=== PATIENT | male | born 1975 | race African-American/Black ===

== ENCOUNTER 2017-05-16 10:14 | Emergency (ER) | payer OTHER ==
[2017-05-16 11:34] LABS: #Monocytes 0.3 thou/uL (0.11-0.59); #Neutrophils 1.8 thou/uL (1.40-6.50); %Basophils 0.6 % (0.0-1.0); %Lymphocytes 31.7 % (21.0-51.0); %Monocytes 9.5 % (0.0-10.0); %Neutrophils 57.2 % (42.0-75.0); Hemoglobin 12.6 g/dL (14.0-18.0); Mean Corpuscular HGB CONC 33.5 g/dL (32.0-36.0); Mean Corpuscular Hemoglobin 29.6 pg (27.0-31.0); Mean Corpuscular Volume 88.5 fl (80.0-94.0); Platelet Count 159 thou/uL (130-400); RBC Distribution Width 11.6 % (11.5-14.5); Red Blood Cell (RBC) Count 4.26 mill/uL (4.70-6.10); White Blood Cell (WBC) Count 3.1 thou/uL (4.8-10.8)
[2017-05-16 11:40] LABS: INR-International Normal Ratio 0.9; Prothrombin Time 12.6 SEC (12.0-14.7)
[2017-05-16 11:51] LABS: ALT (SGPT) 25 U/L (8-55); AST (SGOT) 17 U/L (5-34); Albumin 4.1 g/dL (3.5-5.0); Alkaline Phosphatase 74 U/L (40-150); Anion Gap 9 mmol/L (10-20); BUN (Urea Nitrogen) 7 mg/dL (8.9-20.6); Bilirubin, Total 0.5 mg/dL (0.2-1.2); CK (CPK) 262 U/L (30-200); Calc. Creatinine Clearance 0 mL/min (70-130); Calcium 9.2 mg/dL (7.8-10.44); Carbon Dioxide 29 mmol/L (22-29); Chloride 106 mmol/L (98-107); Estimated GFR-MDRD Greater than 90; Globulin 2.6 g/dL (2.4-3.5); Glucose 94 mg/dL (70-105); Lipase 17 U/L (8-78); Potassium 4.4 mmol/L (3.5-5.1); Protein, Total 6.7 g/dL (6.0-8.3); Sodium 140 mmol/L (136-145)
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
[2017-05-16 13:22] LABS: Bilirubin Negative (Negative); Blood, Urine Negative (Negative); Clarity CLEAR (Clear); Glucose, Urine (Dipstick) 100 mg/dL (Negative); Leukocyte Negative (Negative); Nitrite Negative (Negative); Protein, Urine (Dipstick) Negative (Neg-Trace); Specific Gravity, Urine 1.011 (1.002-1.036); Urobilinogen 0.2 mg/dL (0.2-1.0); pH, Urine 7.5 (5.0-9.0)
[2017-05-16] MEDS ORDERED: Ketorolac Tromethamine 30 MG/ML VIAL ONE (14:42)
== END 2017-05-16 14:55 | disposition home or self-care (01) ==
LOC: ERS 10:14
DX: S80.12XA Contusion of left lower leg, initial encounter (principal); M54.5 Low back pain; M54.6 Pain in thoracic spine; R10.9 Unspecified abdominal pain; I10 Essential (primary) hypertension; E11.9 Type 2 diabetes mellitus without complications; E78.5 Hyperlipidemia, unspecified; V43.62XA Car passenger injured in collision with other type car in traffic accident, initial encounter
CPT/HCPCS: 36415; 72128; 74177; 80053; 81003; 82550; 83605; 83690; 83735; 85025; 85610; 96361; 96374; 96375; J1885; J2270

== ENCOUNTER 2017-08-25 16:50 | Inpatient (IN) | payer OTHER ==
[2017-08-25] MEDS ORDERED: Ondansetron HCl/PF 4 MG/2 ML Vial SLOW IVP PRN (17:18)
[2017-08-25] MEDS ORDERED: Acetaminophen 500 MG TAB PO PRN (17:18)
[2017-08-25] MEDS ORDERED: Benzonatate 100 MG CAP PO PRN (17:21)
[2017-08-25] MEDS ORDERED: Bisacodyl 5 MG TAB PO PRN (17:21)
[2017-08-25 18:16] LABS: #Lymphocytes 1.3 thou/uL (1.20-3.40); #Monocytes 0.4 thou/uL (0.11-0.59); #Neutrophils 3.4 thou/uL (1.40-6.50); %Basophils 0.5 % (0.0-1.0); %Eosinophils 0.5 % (0.0-10.0); %Lymphocytes 25.2 % (21.0-51.0); %Monocytes 8.3 % (0.0-10.0); %Neutrophils 65.6 % (42.0-75.0); Hemoglobin 13.2 g/dL (14.0-18.0); Mean Corpuscular HGB CONC 34.3 g/dL (32.0-36.0); Mean Corpuscular Hemoglobin 29.6 pg (27.0-31.0); Mean Corpuscular Volume 86.2 fl (80.0-94.0); Mean Platelet Volume 8.1 fL (7.4-10.4); Platelet Count 196 thou/uL (130-400); RBC Distribution Width 11.7 % (11.5-14.5); Red Blood Cell (RBC) Count 4.47 mill/uL (4.70-6.10); White Blood Cell (WBC) Count 5.1 thou/uL (4.8-10.8)
[2017-08-25 18:23] LABS: Hemoglobin A1c 10.6 % (4.0-6.0)
--- NOTE | 2017-08-25 18:24 | PDOC.EVN ---
Attending Addendum - Attending Addendum Date/Time: 08/25/171818 I personally evaluated the patient and discussed the management with Dr. Dixon/ Arik. I agree with the History, Examination, Assessment and Plan documented in the H& P with any addition or exceptions noted below. Patient with history of IDDM with last A1c 10.9 in our clinic records presenting with several months of R 3rd toe pain and swelling. He reports no previous injury that he knows of, but reports he has had purulent drainage and increasing pain during that time. Reports that currently the pain extends into his R leg. Denies f/c/n/v/d and malaise. Was evaluated in our clinic today and was sent for treatment with IV antibiotics and concern for possible osteomyelitis. We will admit patient, start treatment with IV Vanc and Zosyn that will require monitoring. Consult wound care. Obtain ESR and XR of foot. If lab or imaging evidence of osteomyelitis, will need MRI and likely surgical consult for possible debridement/amputation of the digit. Recheck A1c and will need to obtain tight glycemic control due to infection. Anticipate 3+days of hospitalization.
[2017-08-25 18:35] LABS: ALT (SGPT) 20 U/L (8-55); AST (SGOT) 15 U/L (5-34); Albumin 4.4 g/dL (3.5-5.0); Alkaline Phosphatase 102 U/L (40-150); Anion Gap 15 mmol/L (10-20); BUN (Urea Nitrogen) 13 mg/dL (8.9-20.6); Bilirubin, Total 0.6 mg/dL (0.2-1.2); CRP (Inflammatory) Less than 0.50 mg/dL (= or < 0.5); Calc. Creatinine Clearance 0 mL/min (70-130); Calcium 10.4 mg/dL (7.8-10.44); Carbon Dioxide 23 mmol/L (22-29); Chloride 99 mmol/L (98-107); Estimated GFR-MDRD 85; Globulin 3.3 g/dL (2.4-3.5); Glucose 342 mg/dL (70-105); Potassium 4.3 mmol/L (3.5-5.1); Protein, Total 7.7 g/dL (6.0-8.3); Sodium 133 mmol/L (136-145)
[2017-08-25 18:54] LABS: Free T4 (Free Thyroxine) 0.88 ng/dL (0.70-1.48); Thyroid Stimulating Hormone 0.6317 uIU/mL (0.35-4.94)
--- NOTE | 2017-08-25 19:40 | PDOC.FPRHP ---
- History of Present Illness Chief Complaint: Toe pain/infection History of Present Illness: 42 yo M w/ PMH of DMII, HTN and BPH presents as direct admit form [facility] for evaluation of rt 3rd toe infection vs osteomyelitis. Pt reports swelling and pain for the past 2 months which has progressively worsened over the last week. He was able to ambulate on the affected toe with some discomfort over the last 2 months but reports decreased ability to apply pressure to affected tow over last week. He does report the toe was draining purulent drainage at some point this week. He denies fever, chills, nvdc, cp, sob, LE skin or color changes. He states he is compliant with his insulin. ED Course: NA - Allergies/Adverse Reactions Allergies Allergy/AdvReac Type Severity Reaction Status Date / Time No Known Drug Allergies Allergy Verified 08/25/17 20:16 - Home Medications Medication Instructions Recorded Confirmed Type Insulin NPH/Reg Insulin Hm 20 unit SC QPM 07/21/14 06/11/16 History [HumuLIN 70/30 Vial] Insulin NPH/Reg Insulin Hm 30 unit SC QAM 07/21/14 06/11/16 History [HumuLIN 70/30 Vial] Simvastatin 40 mg PO HS 07/21/14 06/11/16 History Lisinopril [Zestril] 2.5 mg PO DAILY 01/12/15 06/11/16 History metFORMIN HCl 1,000 mg PO BID- 06/11/16 06/11/16 History Aspirin [Adult Low Dose Aspirin EC] 81 mg PO DAILY #30 tablet. 06/12/16 Rx Comments: UTD when compared to clinic chart - History PMHx:DMII, HTN, BPH, Alcohol abuse, HLD, Drug Use PSHx: Rt pec derm procedure FHx: NA Social: Current 1 pack/week smoker, 24 beers/day for over 10 years, Marijuana use occasionally - Review of Systems General: denies: fever/chills, weight/appetite/sleep changes, night sweats, fatigue Eyes: denies: eye pain, vision changes ENT: denies: nasal congestion, rhinorrhea Respiratory: denies: congestion, shortness of breath Cardiovascular: denies: chest pain, palpitation, edema Gastrointestinal: denies: nausea, vomiting, diarrhea, constipation, abdominal pain Genitourinary: denies: polyuria Skin: denies: rashes, jaundice Musculoskeletal: reports: pain, tenderness, swelling, other (pain, tnederness and swelling of rt 3rd toe) Neurological: denies: numbness, weakness - Vital signs BP: 151/99 HR: 87 RR: 18 Tmax: 98.7 Pox: 96% on RA Wt: - Physical Exam Constitutional: NAD, awake, alert and oriented HEENT: normocephalic and atraumatic, conjunctiva clear, no scleral icterus, grossly normal vision, grossly normal hearing, MMM, oropharynx clear, other ( exopthalmos, amblyopia) Neck: supple, trachea midline, no JVD, no thyromegaly Chest: no-tender to palpation Heart: RRR, normal S1/S2, no murmurs/rubs/gallops, pulses present, no edema Lungs: CTAB, no respiratory distress, good air movement, no rales/rhonchi, no wheezing, no retractions Abdomen: soft, non-tender, bowel sounds present, no masses/distention, no hernias Musculoskeletal: normal structure, ROM grossly normal, other (edema w/ fluctuance of rt 3rd toe and associated tenderness to palpation) Neurological: no focal deficit, CN II-XII intact Skin: no rash/lesions, capillary refill <2 seconds, no jaundice Heme/Lymphatic: no unusual bruising or bleeding, no petechia FMR H&P: Results - Labs Result Diagrams: 08/25/17 18:06 08/25/17 18:06 Lab results: WBC 5.1 thou/uL (4.8-10.8) 08/25/17 18:06 Hgb 13.2 g/dL (14.0-18.0) L 08/25/17 18:06 Hct 38.6 % (42.0-52.0) L 08/25/17 18:06 MCV 86.2 fl (80.0-94.0) 08/25/17 18: Plt Count 196 thou/uL (130-400) 08/25/17 18: Neutrophils % 65.6 % (42.0-75.0) 08/25/17 18: ESR Westergren 23 mm/hr (Less than 15) 08/25/17 18: Sodium 133 mmol/L (136-145) L 08/25/17 18:06 Potassium 4.3 mmol/L (3.5-5.1) 08/25/17 18:06 Chloride 99 mmol/L (98-107) 08/25/17 18:06 Carbon Dioxide 23 mmol/L (22-29) 08/25/17 18:06 BUN 13 mg/dL (8.9-20.6) 08/25/17 18:06 Creatinine 1.15 mg/dL (0.6-1.3) 08/25/17 18:06 Glucose 342 mg/dL (70-105) H 08/25/17 18:06 Calcium 10.4 mg/dL (7.8-10.44) 08/25/17 18:06 Total Bilirubin 0.6 mg/dL (0.2-1.2) 08/25/17 18:06 AST 15 U/L (5-34) 08/25/17 18:06 ALT 20 U/L (8-55) 08/25/17 18:06 Alkaline Phosphatase 102 U/L (40-150) 08/25/17 18:06 C-Reactive Protein Less than 0.50 mg/dL (= or < 0.5) 08/25/17 18:06 Serum Total Protein 7.7 g/dL (6.0-8.3) 08/25/17 18:06 Albumin 4.4 g/dL (3.5-5.0) 08/25/17 18:06 FMR H&P: A/P - Problem List (1) Diabetic foot infection Current Visit: Yes Status: Acute Code(s): E11.628 - TYPE 2 DIABETES MELLITUS WITH OTHER SKIN COMPLICATIONS; L08.9 - LOCAL INFECTION OF THE SKIN AND SUBCUTANEOUS TISSUE, UNSP (2) Diabetes mellitus Current Visit: Yes Status: Acute Code(s): E11.9 - TYPE 2 DIABETES MELLITUS WITHOUT COMPLICATIONS (3) Hyperlipidemia Current Visit: Yes Status: Acute Code(s): E78.5 - HYPERLIPIDEMIA, UNSPECIFIED (4) Essential hypertension Current Visit: No Status: Acute Code(s): I10 - ESSENTIAL (PRIMARY) HYPERTENSION (5) Alcohol abuse Current Visit: Yes Status: Acute Code(s): F10.10 - ALCOHOL ABUSE, UNCOMPLICATED - Plan 1) Diabetic foot infection vs osteomyelitis: 3v XR of foot, broad spectrum abx w / vanc + zosyn. ESR + CRP. Consider surgery consult in AM pending xray and lab findings. NPO @ midnight. 2) DMII: Continue home insulin + moderate SSI. Accuchecks ACHS. A1c >10. Consider further adjustment after NPO no longer needed 3) HLD: Home medications 4) HTN: BP elevated today, will increase lisinopril to 10mg/day 5) Alcohol abuse: subjective, ASE protocol, last drink yesterday per pt 6) h/o drug abuse; UDS 7) Exopthalmos: check TSH 8) PPX: SCDs, Pepcid for DVT and GI ppx respectively 9) Code status: pt wishes to be full code. Spoke with pt at bedside and 2 physicians present. Disposition/LOS: stable, >/= 2 days FMR H&P: Upper Level - Pertinent history 42yo AAM with pmhx IDDM2, HLD, etoh abuse and drug abuse presents as direct admit from clinic today for a right toe infection and concern for osteomyelitis. Pt endorses a wound on his right toe over the last few months that has worsened over the last week. Has now become painful and difficult to ambulate due to pain. Has not had any prior ulcers, infections or amputations. Endorses medication compliance, although has a last a1c of 10.9%. Rates his pain 10/10. Specifically denies fever, chills, nausea & vomiting, systemic symptoms or spread of infection beyond toe. Pt also endorses 24+ beers per day with his last drink being 1 day [employer]. Occasional MJ use and occasional tobacco use. - Pertinent findings PE sig for: Gen- well appearing male in NAD HEENT- exopthalmos bilaterally, ambylopia CV- rrrr, no mrg lungs- ctab abd- soft, nt,nd LE- no edema. Rt 3rd toe edema, fluctuance and ttp. no active discharge, unable to express purulent material Labs- pending foot xray- pending - Plan Date/Time: 08/25/171938 42yo aam w/ pmhx IDDM, HLD p/w- 1) Diabetic foot infection- r/o osteomyelitis with CBC, ESR & foot xray. unable to culture wound at this time (not open). Start empiric abx w/ IV Vanc + Zosyn for presumed polymicrobial infection. Consult wound care for mgmt. NPO and mn and consider surgical consult for debridement if required. 2) IDDM2- recommend strict glycemic control in setting of acute infection. continue home insulin + SSI. increase lisinopril due to evidence of microalbuminuria in clinic recently by review of records and improved BP control. 3) HTN- inc lisinopril. may need 2nd agent due to MOA of lisinopril not likely effective as anti-HTNive in AAM. monitor bp in hospital for further mgmt. 4) HLD- consider switch to high-intensity statin based on ASCVD = 14% 5) ETOH abuse- ASE protocol, monitor for s/sx withdrawal. has not had withdrawal previously. 6) drug abuse- check UDS 7) tobacco abuse- skilled nursing facility counselor re: cessation. offer TD nicotine. I, [Aby Elise], have evaluated this patient and agree with findings/plan as outlined by program management intern resident. Pertinent changes/additions are listed here.
[2017-08-25] MEDS: Piperacillin/Tazobactam 3.375 GM in Sodium Chloride 0.9% 100 ML IVPB SCH (19:42)
[2017-08-25 20:02] VITALS: BMI 34.5
[2017-08-25] MEDS ORDERED: Dextrose 50% Abboject 50 ML SYRINGE SLOW IVP PRN (20:14)
[2017-08-25] MEDS ORDERED: Dextrose 5% in Water 1,000 ML IV PRN (20:14)
--- NOTE | 2017-08-25 20:51 | RAD ---
THREE VIEWS OF THE RIGHT FOOT: 08/25/17 INDICATION: Concern for osteomyelitis. FINDINGS: There is prominent soft tissue swelling of the right small digit. There is soft tissue swelling of th e right third digit. No destructive osteolysis seen to suggest radiographic evidence of osteomyelitis . There is arthrodesis of the talocalcaneal and calcaneocuboid articulations. There is moderate degen erative change in the midfoot. IMPRESSION: 1. No radiographic evidence of osteomyelitis. Soft tissue swelling in the right third digit and right small digit. 2. Postoperative right foot. 3. Degenerative changes of the right foot. POS: [facility]
[2017-08-25] MEDS: Insulin NPH/Reg Insulin Hm 300 UNITS/3 ML VIAL SC SCH (20:52)
[2017-08-25] MEDS: Vancomycin HCl 1.25 GM in Sodium Chloride 0.9% 250 ML 250 ML IVPB SCH (20:53)
[2017-08-25] MEDS: Simvastatin 40 MG TAB PO SCH (20:53)
[2017-08-26] MEDS: Piperacillin/Tazobactam 3.375 GM in Sodium Chloride 0.9% 100 ML IVPB SCH ×4 (00:39→17:23)
--- NOTE | 2017-08-26 06:39 | PDOC.FM ---
Addendum entered and electronically signed by Joe Turner MD 08/26/17 08: 11: Right third toe erythema and edema. Not second toe. Original Note: - Subjective Subjective: Patient states he has no pain. He states the bed is not very comfortable this morning. He denies any fevers, chills, or coughs. He has no other complaints this morning. - Objective Vital Signs & Weight: Vital Signs (12 hours) Temp Pulse Resp BP Pulse Ox 08/25/17 20:20 97.8 F 74 20 123/74 96 08/25/17 20:16 97.8 F 82 18 157/99 H 98 08/25/17 20:00 97.8 F 74 20 96 Weight Weight 103.147 kg I&O: 08/24/17 08/25/17 08/26/17 06:59 06:59 06:59 Intake Total 470 Balance 470 Result Diagrams: 08/25/17 18:06 08/25/17 18:06 <Joe Turner - Last Filed: 08/26/17 07:19> - Objective Vital Signs & Weight: Vital Signs (12 hours) Temp Pulse Resp BP Pulse Ox 08/26/17 08:00 98.2 F 74 18 96 08/26/17 07:51 98.2 F 74 18 107/70 99 Weight Admit Weight 103.147 kg Weight 103.147 kg I&O: 08/25/17 08/26/17 08/27/17 06:59 06:59 06:59 Intake Total 470 Balance 470 Result Diagrams: 08/25/17 18:06 08/25/17 18:06 <Tony Cerda - Last Filed: 08/26/17 10:47> Phys Exam - Physical Examination Exopthalmos Respiratory: no wheezing, clear to auscultation bilateral Cardiovascular: RRR, no significant murmur Gastrointestinal: soft, non-tender, no distention, positive bowel sounds Musculoskeletal: no edema, pulses present Right 2nd toe erythema, edema Neurological: non-focal, normal sensation, moves all 4 limbs Lymphatic: no nodes Psychiatric: normal affect, A&O x 3 Skin: no rash <Joe Turner - Last Filed: 08/26/17 07:19> Dx/Plan (1) Alcohol abuse Code(s): F10.10 - ALCOHOL ABUSE, UNCOMPLICATED Status: Acute (2) Diabetes mellitus Code(s): E11.9 - TYPE 2 DIABETES MELLITUS WITHOUT COMPLICATIONS Status: Acute (3) Diabetic foot infection Code(s): E11.628 - TYPE 2 DIABETES MELLITUS WITH OTHER SKIN COMPLICATIONS; L08.9 - LOCAL INFECTION OF THE SKIN AND SUBCUTANEOUS TISSUE, UNSP Status: Acute (4) Hyperlipidemia Code(s): E78.5 - HYPERLIPIDEMIA, UNSPECIFIED Status: Acute (5) Constant exophthalmos Code(s): H05.249 - CONSTANT EXOPHTHALMOS, UNSPECIFIED EYE Status: Acute (6) Essential hypertension Code(s): I10 - ESSENTIAL (PRIMARY) HYPERTENSION Status: Acute - Plan Plan: (1) Diabetic foot infection - Rule out Osteomyelitis - Foot xray did not reveal osteo - With presentation of foot, will order MRI this AM. (2) Diabetes mellitus - Continue home regimen - Will increase insulin dosage for better control - Accuchecks - SSI (3) Hyperlipidemia - Continue statin (4) Essential hypertension - BP at goal this AM - Continue Lisinopril (5) Alcohol abuse - ASE protocol - Recommend cessation (6) Exopthalmos - TSH normal - Recommend outpatient follow up Disposition: Stable, will await MRI results. <Joe Turner - Last Filed: 08/26/17 07:19> Attending Addendum - Attending Addendum Date/Time: 08/26/17 1046 I personally evaluated the patient and discussed the management with Dr. Turner. I agree with the History, Examination, Assessment and Plan documented above with any addition or exceptions noted below. Patient with no XR evidence of osteo and ESR not highly elevated. Will continue IV abx and await wound care team consult. May consider surgical consultation on Monday if not improved or continued concern for deeper infection. Will need intense glucose control with insulin to prevent further complications. <Tony Cerda - Last Filed: 08/26/17 10:47>
[2017-08-26] MEDS: Vancomycin HCl 1.25 GM in Sodium Chloride 0.9% 250 ML 250 ML IVPB SCH ×3 (06:51→21:39)
[2017-08-26] MEDS: metFORMIN 500 MG TAB PO SCH ×2 (10:54→17:24)
[2017-08-26] MEDS: Insulin NPH/Reg Insulin Hm 300 UNITS/3 ML VIAL SC SCH ×2 (12:21→21:38)
[2017-08-26] MEDS: Lisinopril 10 MG TAB PO SCH (12:24)
[2017-08-26] MEDS: HumaLOG 300 UNITS/3 ML VIAL SC PRN ×2 (17:23→21:38)
[2017-08-26 20:31] LABS: Vancomycin, Trough 17.7 ug/mL
[2017-08-26] MEDS: Simvastatin 40 MG TAB PO SCH (21:39)
[2017-08-27] MEDS: Piperacillin/Tazobactam 3.375 GM in Sodium Chloride 0.9% 100 ML IVPB SCH ×4 (00:14→17:12)
[2017-08-27] MEDS: Vancomycin HCl 1.25 GM in Sodium Chloride 0.9% 250 ML 250 ML IVPB SCH ×3 (05:54→21:12)
--- NOTE | 2017-08-27 07:34 | PDOC.FM ---
- Subjective Subjective: Patient states pain is much improved in his foot. He denies fevers, chills, n/v/ d, or cough. He has no other complaints this morning. - Objective Vital Signs & Weight: Vital Signs (12 hours) Temp Pulse Resp BP Pulse Ox 08/26/17 20:12 97.7 F 97 18 118/76 100 08/26/17 20:00 97.7 F 97 18 100 Weight Admit Weight 103.147 kg Weight 103.147 kg I&O: 08/26/17 08/27/17 08/28/17 06:59 06:59 06:59 Intake Total 470 550 Balance 470 550 Result Diagrams: 08/25/17 18:06 08/25/17 18:06 <Joe Turner - Last Filed: 08/27/17 07:32> - Objective Vital Signs & Weight: Vital Signs (12 hours) Temp Pulse Resp BP BP Pulse Ox 08/27/17 08:42 122/77 08/27/17 08:00 97.8 F 88 18 98 08/27/17 07:42 97.8 F 88 18 122/77 97 Weight Admit Weight 103.147 kg Weight 103.147 kg I&O: 08/26/17 08/27/17 08/28/17 06:59 06:59 06:59 Intake Total 470 550 Balance 470 550 Result Diagrams: 08/25/17 18:06 08/25/17 18:06 <Tony Cerda - Last Filed: 08/27/17 10:45> Phys Exam - Physical Examination HEENT: moist MMs Neck: no nodes Respiratory: no wheezing, clear to auscultation bilateral Cardiovascular: RRR, no significant murmur Gastrointestinal: soft, non-tender, no distention, positive bowel sounds Musculoskeletal: no edema, pulses present Right third toe erythema and edema, unchanged Neurological: non-focal, moves all 4 limbs Lymphatic: no nodes Psychiatric: normal affect <Joe Turner - Last Filed: 08/27/17 07:32> Dx/Plan (1) Alcohol abuse Code(s): F10.10 - ALCOHOL ABUSE, UNCOMPLICATED Status: Acute (2) Diabetes mellitus Code(s): E11.9 - TYPE 2 DIABETES MELLITUS WITHOUT COMPLICATIONS Status: Acute (3) Diabetic foot infection Code(s): E11.628 - TYPE 2 DIABETES MELLITUS WITH OTHER SKIN COMPLICATIONS; L08.9 - LOCAL INFECTION OF THE SKIN AND SUBCUTANEOUS TISSUE, UNSP Status: Acute (4) Hyperlipidemia Code(s): E78.5 - HYPERLIPIDEMIA, UNSPECIFIED Status: Acute (5) Constant exophthalmos Code(s): H05.249 - CONSTANT EXOPHTHALMOS, UNSPECIFIED EYE Status: Acute (6) Essential hypertension Code(s): I10 - ESSENTIAL (PRIMARY) HYPERTENSION Status: Acute - Plan Plan: (1) Diabetic foot infection - Rule out Osteomyelitis - Foot xray did not reveal osteo - Wound care consulted - If worsens will order MRI/surgery consult (2) Diabetes mellitus - Continue home regimen - Only 2 u SSI yesterday with glucose in 100s, will hold on increase for now. - Accuchecks - SSI (3) Hyperlipidemia - Continue statin (4) Essential hypertension - BP at goal this AM - Continue Lisinopril (5) Alcohol abuse - ASE protocol - Recommend cessation - No signs or symptoms of withdrawal. (6) Exopthalmos - TSH normal - Recommend outpatient follow up Disposition: Stable, Continue current plan of care. <Joe Turner - Last Filed: 08/27/17 07:32> Attending Addendum - Attending Addendum Date/Time: 08/27/17 1044 I personally evaluated the patient and discussed the management with Dr. Turner. I agree with the History, Examination, Assessment and Plan documented above with any addition or exceptions noted below. Patient reports improved pain in his toe. Continue IV antibiotics and likely transition to oral abx tomorrow. Wound care has discharged patient and so will continue treatment in outpatient setting and referral to Podiatry. <Tony Cerda - Last Filed: 08/27/17 10:45>
[2017-08-27] MEDS: Lisinopril 10 MG TAB PO SCH (08:42)
[2017-08-27] MEDS: metFORMIN 500 MG TAB PO SCH ×2 (08:42→18:35)
[2017-08-27] MEDS: Insulin NPH/Reg Insulin Hm 300 UNITS/3 ML VIAL SC SCH ×2 (08:43→21:11)
[2017-08-27] MEDS: HumaLOG 300 UNITS/3 ML VIAL SC PRN ×2 (11:48→21:13)
[2017-08-27] MEDS: Simvastatin 40 MG TAB PO SCH (21:12)
[2017-08-28] MEDS: Piperacillin/Tazobactam 3.375 GM in Sodium Chloride 0.9% 100 ML IVPB SCH ×3 (00:28→12:03)
[2017-08-28] MEDS: HumaLOG 300 UNITS/3 ML VIAL SC PRN ×2 (05:34→12:04)
[2017-08-28] MEDS: Vancomycin HCl 1.25 GM in Sodium Chloride 0.9% 250 ML 250 ML IVPB SCH (06:08)
--- NOTE | 2017-08-28 06:23 | PDOC.FM ---
- Subjective Subjective: Patient had good night. Patient reports improvement of pain. Patient is ready to go home today. No other complaints. - Objective Vital Signs & Weight: Vital Signs (12 hours) Temp Pulse Resp BP BP Pulse Ox 08/27/17 22:50 119/74 08/27/17 20:00 98.4 F 78 20 144/94 H 99 Weight Admit Weight 103.147 kg Weight 103.147 kg I&O: 08/26/17 08/27/17 08/28/17 06:59 06:59 06:59 Intake Total 470 550 700 Balance 470 550 700 Result Diagrams: 08/25/17 18:06 08/25/17 18:06 Phys Exam - Physical Examination HEENT: moist MMs Neck: no nodes Respiratory: no wheezing, clear to auscultation bilateral Cardiovascular: RRR, no significant murmur Gastrointestinal: soft, non-tender, no distention, positive bowel sounds Musculoskeletal: no edema, pulses present Right third toe edema and erythema, improved Neurological: non-focal, normal sensation, moves all 4 limbs Lymphatic: no nodes Psychiatric: normal affect, A&O x 3 Skin: no rash Dx/Plan (1) Alcohol abuse Code(s): F10.10 - ALCOHOL ABUSE, UNCOMPLICATED Status: Acute (2) Diabetes mellitus Code(s): E11.9 - TYPE 2 DIABETES MELLITUS WITHOUT COMPLICATIONS Status: Acute (3) Diabetic foot infection Code(s): E11.628 - TYPE 2 DIABETES MELLITUS WITH OTHER SKIN COMPLICATIONS; L08.9 - LOCAL INFECTION OF THE SKIN AND SUBCUTANEOUS TISSUE, UNSP Status: Acute (4) Hyperlipidemia Code(s): E78.5 - HYPERLIPIDEMIA, UNSPECIFIED Status: Acute (5) Constant exophthalmos Code(s): H05.249 - CONSTANT EXOPHTHALMOS, UNSPECIFIED EYE Status: Acute (6) Essential hypertension Code(s): I10 - ESSENTIAL (PRIMARY) HYPERTENSION Status: Acute - Plan Plan: (1) Diabetic foot infection - Rule out Osteomyelitis - Foot xray did not reveal osteo - Will transition to PO antibiotics - Wound care consulted, recommend nursing care only - If worsens will order MRI/surgery consult (2) Diabetes mellitus - Continue home regimen - Have outpatient follow up for increased regimen - Accuchecks - SSI (3) Hyperlipidemia - Continue statin (4) Essential hypertension - BP at goal this AM - Continue Lisinopril (5) Alcohol abuse - ASE protocol - Recommend cessation - No signs or symptoms of withdrawal. (6) Exopthalmos - TSH normal - Recommend outpatient follow up Disposition: Stable, Patient likely stable for discharge.
[2017-08-28 07:21] VITALS: BP 116/76; TEMP 98
[2017-08-28] MEDS: Lisinopril 10 MG TAB PO SCH (08:32)
[2017-08-28] MEDS: metFORMIN 500 MG TAB PO SCH (08:32)
[2017-08-28] MEDS: Insulin NPH/Reg Insulin Hm 300 UNITS/3 ML VIAL SC SCH (08:33)
--- NOTE | 2017-08-28 11:12 | DIS-2 ---
DATE OF ADMISSION: 08/25/2017 DATE OF DISCHARGE: 08/28/2017 RESIDENT: Dr. Joe Turner ADMITTING ATTENDING: Dr. Tony Cerda DISCHARGE ATTENDING: Dr. Tad Marrero CONSULTATIONS: Wound Care. PROCEDURES: The patient underwent a foot x-ray on 08/25/2017 that showed no radiographic evidence of osteomyelitis, soft tissue swelling of the right third digit and right small digit. Postoperative right foot degenerative changes of the right foot. PRIMARY DIAGNOSIS: 1. Diabetic foot infection. 2. Diabetes mellitus. 3. Hyperlipidemia. 4. Essential hypertension. 5. Constant exophthalmos. 6. Alcohol abuse. DISCHARGE MEDICATIONS: 1. Simvastatin 40 mg p.o. at bedtime. 2. Insulin 70/30, 20 units subcutaneous q.p.m. 3. Insulin 70/30 subcu a.m. 4. Lisinopril 2.5 mg daily. 5. Metformin 1000 mg p.o. b.i.d. 6. Augmentin 875/125 p.o. b.i.d. for 7 days. 7. Lisinopril 10 mg p.o. daily. 8. Bactrim double strength 1 tab p.o. b.i.d. for 7 days. 9. Aspirin 81 mg p.o. daily. DISCONTINUED MEDICATIONS: Lisinopril 2.5 mg daily. HOSPITAL COURSE: This is a 42-year-old male with past medical history of type 2 diabetes, hypertension that presents for a direct admit from [facility] for evaluation of right third toe infection versus osteomyelitis. The patient reports swelling and pain for the past 2 months which has progressively worsened over the last week. He was able to ambulate on the affected toe with some discomfort in the last 2 months, but reports decreased ability to apply pressure to affected toe over the last week. He does report toe was draining purulent drainage at some point this week. He denies fever, chills, nausea, vomiting, diarrhea, constipation, chest pain, shortness of breath, lower extremity skin or color changes. He states he is compliant with his insulin. During this hospitalization, the patient did not have any notable laboratory findings other than his glucose that was poorly controlled, ranging from 118 to as high as 401. The patient did not have any purulent material coming from his wound for cultures and blood cultures and other sources of cultures were not to be completed because of his lack of physical findings. The patient could not undergo an MRI because at this time and did not feel like he would have an osteomyelitis and rather just a superficial diabetic foot infection. The patient had steady improvement on the IV antibiotics. He was transitioned to p.o. antibiotics that would cover for methicillin-resistant Staphylococcus aureus type infections and hopefully will not have any further complications from this. Wound Care was consulted and recommended only therapy that could be done by the nursing staff with close outpatient followup. We do recommend that this patient be referred from his PCP to a circuit manager as well as increasing his insulin regimen to get better control of his diabetes. The patient otherwise had no further complications during his hospitalization and was discharged in appropriate condition. DISPOSITION: Stable. DISCHARGE INSTRUCTIONS: 1. Location: To be discharged home under the care of himself. 2. Diet will be a diabetic diet. 3. Activity will be as tolerated with no restrictions, but we do hope that he keeps a close watch on his toe infection. 4. Follow up will be with his primary care provider, Dr. Wilmar Horn, attending physician in 3 days to continue to watch this infection as well as manage his chronic illnesses. We wish this carol the best of luck and hopefully has no further complications from this disease. [id number]
--- NOTE | 2017-08-28 11:49 | ADD-PRG ---
DATE OF SERVICE: 08/28/2017 This is an addendum to the note of Dr. Joe Turner. Mr. Pacheco is a 42-year-old type 2 diabetic, who was admitted with a possible mild foot infection, whic h has resolved and improved with several courses of IV antibiotics. He was seen by [facility], who d id not feel there was anything they could offer. He will be discharged today on oral antibiotics for followup in the clinic.
== END 2017-08-28 13:15 | disposition home or self-care (01) | DRG 639 ==
LOC: T4-A 16:50
PROVIDERS: ADMIT Student in an Organized Health Care Education/Training Program; ATTEND Student in an Organized Health Care Education/Training Program
DX: E11.628 Type 2 diabetes mellitus with other skin complications (principal); F17.210 Nicotine dependence, cigarettes, uncomplicated; I10 Essential (primary) hypertension; L08.9 Local infection of the skin and subcutaneous tissue, unspecified; E78.5 Hyperlipidemia, unspecified; F10.10 Alcohol abuse, uncomplicated; Z79.4 Long term (current) use of insulin; Z79.84 Long term (current) use of oral hypoglycemic drugs; Z79.82 Long term (current) use of aspirin; H05.249 Constant exophthalmos, unspecified eye
CPT/HCPCS: 36415; 36416; 80053; 80202; 83036; 84439; 84443; 84481; 85025; 85652; 86140; J2543; J3370; J7050

== ENCOUNTER 2018-06-05 11:17 | Emergency (ER) | payer OTHER | END 2018-06-05 12:23 | disposition home or self-care (01) | LOC: ERS 11:17 | DX: L03.312 Cellulitis of back [any part except buttock and flank] (principal); I10 Essential (primary) hypertension; E11.9 Type 2 diabetes mellitus without complications | CPT/HCPCS: 99283 ==

== ENCOUNTER 2019-01-31 13:09 | Emergency (ER) | payer OTHER | END 2019-01-31 15:49 | disposition home or self-care (01) | LOC: ERS 13:09 | DX: N48.1 Balanitis (principal); E13.65 Other specified diabetes mellitus with hyperglycemia; I10 Essential (primary) hypertension | CPT/HCPCS: 36416; 99282 ==

== ENCOUNTER 2020-09-25 10:05 | Inpatient (IN) | payer OTHER ==
[2020-09-25] MEDS ORDERED: Calcium Carbonate 500 MG ChewTAB PO PRN (10:45)
[2020-09-25] MEDS ORDERED: Ondansetron ODT 4 MG TAB PO PRN (10:45)
[2020-09-25] MEDS ORDERED: Acetaminophen 325 MG TAB PO PRN (10:45)
[2020-09-25 11:34] LABS: #Eosinphils 0.1 thou/uL (0.0-0.7); #Lymphocytes 1.3 thou/uL (1.20-3.40); #Monocytes 0.5 thou/uL (0.11-0.59); #Neutrophils 3.4 thou/uL (1.40-6.50); %Eosinophils 1.1 % (0.0-10.0); %Lymphocytes 25.3 % (21.0-51.0); %Monocytes 9.7 % (0.0-10.0); %Neutrophils 63.9 % (42.0-75.0); Hemoglobin 12.8 g/dL (14.0-18.0); Mean Corpuscular HGB CONC 33.5 g/dL (32.0-36.0); Mean Corpuscular Hemoglobin 29.4 pg (27.0-31.0); Mean Corpuscular Volume 87.5 fL (78.0-98.0); Mean Platelet Volume 8.6 fL (7.4-10.4); Platelet Count 206 thou/uL (130-400); RBC Distribution Width 11.4 % (11.5-14.5); Red Blood Cell (RBC) Count 4.35 mill/uL (4.70-6.10); White Blood Cell (WBC) Count 5.3 thou/uL (4.8-10.8)
[2020-09-25 11:58] LABS: ALT (SGPT) 18 U/L (8-55); AST (SGOT) 16 U/L (5-34); Albumin 3.9 g/dL (3.5-5.0); Alkaline Phosphatase 97 U/L (40-110); Anion Gap 11 mmol/L (10-20); BUN (Urea Nitrogen) 16 mg/dL (8.9-20.6); Bilirubin, Total 0.3 mg/dL (0.2-1.2); Calc. Creatinine Clearance 0 mL/min (70-130); Calcium 9.9 mg/dL (7.8-10.44); Carbon Dioxide 29 mmol/L (22-29); Chloride 100 mmol/L (98-107); Globulin 3.1 g/dL (2.4-3.5); Glucose 389 mg/dL (70-105); Potassium 4.5 mmol/L (3.5-5.1); Sodium 135 mmol/L (136-145)
[2020-09-25] MEDS ORDERED: HumaLOG 300 UNITS/3 ML VIAL SC PRN ×2 (12:31)
[2020-09-25] MEDS ORDERED: Dextrose 5% in Water 1,000 ML IV PRN (12:31)
[2020-09-25] MEDS ORDERED: Dextrose 50% Abboject 50 ML SYRINGE SLOW IVP PRN (12:31)
[2020-09-25] MEDS ORDERED: Lantus 1000 UNITS/10 ML VIAL SC SCH (12:45)
[2020-09-25] MEDS ORDERED: Lisinopril 10 MG TAB PO SCH (13:00)
[2020-09-25 13:04] VITALS: BMI 28.3
[2020-09-25 13:49] LABS: Hemoglobin A1c 12.9 % (4.0-6.0)
[2020-09-25 13:52] LABS: CRP (Inflammatory) Less than 0.50 mg/dL (= or < 0.5); Cholesterol 157 mg/dl (< 200 Desired); HDL Cholesterol 53 mg/dL (>60 Neg Risk); LDL Cholesterol, Calculated 86 mg/dL; Triglycerides 92 mg/dL (Less than 150)
[2020-09-25 14:13] LABS: Thyroid Stimulating Hormone 0.2788 uIU/mL (0.35-4.94)
[2020-09-25 14:20] LABS: Syphilis Antibody Nonreactive (Nonreactive); Syphilis Antibody Index 0.03 S/CO (<1.00 Non-Reactive)
[2020-09-25 14:41] LABS: HIV (1/2) Antibody/Antigen Non-Reactive (NonReactive); HIV 1/2 INDEX 0.14 S/CO (<1.00); Hep C IgG Ab Non-Reactive (NonReactive); Hep C Index 0.07 S/CO (0-0.79)
[2020-09-25] MEDS: Lactated Ringer's 1,000 ML IV SCH ×2 (15:06→21:06)
[2020-09-25] MEDS: metFORMIN 500 MG TAB PO SCH (17:54)
[2020-09-25] MEDS ORDERED: Famotidine 20 MG TAB PO SCH (21:00)
[2020-09-25] MEDS ORDERED: Atorvastatin Calcium 40 MG TAB PO SCH (21:00)
[2020-09-26] MEDS: Lactated Ringer's 1,000 ML IV SCH (04:16)
[2020-09-26 06:14] LABS: Anion Gap 14 mmol/L (10-20); BUN (Urea Nitrogen) 12 mg/dL (8.9-20.6); Calc. Creatinine Clearance 109 mL/min (70-130); Calcium 8.9 mg/dL (7.8-10.44); Carbon Dioxide 25 mmol/L (22-29); Chloride 103 mmol/L (98-107); Glucose 150 mg/dL (70-105); Sodium 138 mmol/L (136-145)
[2020-09-26] MEDS ORDERED: Ibuprofen 600 MG TAB PO PRN (08:10)
[2020-09-26] MEDS: metFORMIN 500 MG TAB PO SCH (08:20)
[2020-09-26] MEDS ORDERED: Lisinopril 10 MG TAB PO SCH (09:00)
[2020-09-26] MEDS ORDERED: Aspirin Chewable 81 MG TAB PO SCH (09:00)
[2020-09-26] MEDS ORDERED: Lantus 1000 UNITS/10 ML VIAL SC SCH (09:00)
[2020-09-26 09:41] LABS: SARS-CoV-2 NAA Rapid Test Not Detected (NotDetected)
[2020-09-26 11:35] VITALS: BP 122/77; TEMP 97.4
== END 2020-09-26 16:14 | disposition home or self-care (01) | DRG 300 ==
LOC: SURG B 10:17
PROVIDERS: ADMIT Family Medicine; ATTEND Family Medicine
DX: E11.52 Type 2 diabetes mellitus with diabetic peripheral angiopathy with gangrene (principal); I96 Gangrene, not elsewhere classified; N17.9 Acute kidney failure, unspecified; Z20.822 Contact with and (suspected) exposure to COVID-19; E11.65 Type 2 diabetes mellitus with hyperglycemia; E78.5 Hyperlipidemia, unspecified; E11.22 Type 2 diabetes mellitus with diabetic chronic kidney disease; I12.9 Hypertensive chronic kidney disease with stage 1 through stage 4 chronic kidney disease, or unspecified chronic kidney disease; N18.9 Chronic kidney disease, unspecified; I75.021 Atheroembolism of right lower extremity; Z79.84 Long term (current) use of oral hypoglycemic drugs; Z79.82 Long term (current) use of aspirin; Z79.899 Other long term (current) drug therapy
CPT/HCPCS: 36415; 36416; 76775; 80048; 80053; 80061; 83036; 84145; 84439; 84443; 85025; 85652; 86140; 86780; 86803; 87389; 93922; J1815; U0002; U0003; U0005

== ENCOUNTER 2021-11-04 19:00 | Emergency (ER) | payer OTHER ==
[~2021-11-04 19:00] MED LIST: ISOVUE-370 76%-LOCM 1 ML ONE
[2021-11-04 21:51] LABS: #Lymphocytes 1.1 thou/uL (1.20-3.40); #Monocytes 0.4 thou/uL (0.11-0.59); #Neutrophils 3.1 thou/uL (1.40-6.50); %Basophils 0.2 % (0.0-1.0); %Eosinophils 0.9 % (0.0-10.0); %Lymphocytes 23.2 % (21.0-51.0); %Monocytes 8.5 % (0.0-10.0); %Neutrophils 67.2 % (42.0-75.0); Hemoglobin 12.7 g/dL (14.0-18.0); Mean Corpuscular HGB CONC 32.1 g/dL (32.0-36.0); Mean Corpuscular Hemoglobin 29.2 pg (27.0-31.0); Mean Corpuscular Volume 90.8 fL (78.0-98.0); Mean Platelet Volume 9.7 fL (7.4-10.4); Platelet Count 186 thou/uL (130-400); RBC Distribution Width 12.2 % (11.5-14.5); Red Blood Cell (RBC) Count 4.35 mill/uL (4.70-6.10); White Blood Cell (WBC) Count 4.6 thou/uL (4.8-10.8)
[2021-11-04 22:12] LABS: ALT (SGPT) 11 U/L (8-55); AST (SGOT) 10 U/L (5-34); Albumin 3.7 g/dL (3.5-5.0); Alkaline Phosphatase 106 U/L (40-110); Anion Gap 12 mmol/L (10-20); BUN (Urea Nitrogen) 25 mg/dL (8.9-20.6); Bilirubin, Total 0.3 mg/dL (0.2-1.2); Calc. Creatinine Clearance 0 mL/min (70-130); Calcium 9.4 mg/dL (7.8-10.44); Carbon Dioxide 26 mmol/L (22-29); Chloride 101 mmol/L (98-107); Estimated GFR 54; Globulin 3.2 g/dL (2.4-3.5); Glucose 428 mg/dL (70-105); Lipase 33 U/L (8-78); Potassium 5.1 mmol/L (3.5-5.1); Protein, Total 6.9 g/dL (6.0-8.3); Sodium 134 mmol/L (136-145)
[2021-11-04] MEDS ORDERED: Lidocaine Viscous Sol 2% 15 ml UD Cup ONE (22:19)
[2021-11-04] MEDS ORDERED: Insulin Regular 300 UNITS/3 ML VIAL ONE (22:46)
[2021-11-04 22:53] LABS: Bacteria/HPF None Seen HPF (None Seen); Bilirubin Negative (Negative); Blood, Urine Negative (Negative); Clarity Clear (Clear); Glucose, Urine (Dipstick) Greater than 1000 mg/dL (Negative); Ketone, Urine Trace mg/dL (Negative); Leukocyte 25 Leu/uL (Negative); Nitrite Negative (Negative); Protein, Urine (Dipstick) Negative (Neg-Trace); RBC/HPF 0-3 HPF (0-3); Specific Gravity, Urine 1.022 (1.002-1.036); Squamous Epithelial 0-3 HPF (0-3); Urobilinogen Normal mg/dL (Less than 2); WBC/HPF 0-3 HPF (0-3)
[2021-11-04] MEDS ORDERED: cefTRIAXone\\ROCEPHIN 1 GM VIAL ONE (23:22)
== END 2021-11-04 23:49 | disposition home or self-care (01) ==
LOC: ERS 19:00
DX: B37.41 Candidal cystitis and urethritis (principal); I10 Essential (primary) hypertension; E11.65 Type 2 diabetes mellitus with hyperglycemia; E78.5 Hyperlipidemia, unspecified
CPT/HCPCS: 36415; 36416; 74177; 80053; 81003; 81015; 83690; 85025; 96361; 96374; J0696; J1815; Q9966

== ENCOUNTER 2025-01-08 04:23 | Inpatient (IN) | payer MEDICAID ==
[2025-01-08] MEDS ORDERED: Acetaminophen 500 MG TAB ONE (04:57)
[2025-01-08 05:48] LABS: ALT (SGPT) 12 U/L (Less than 45); AST (SGOT) 19 U/L (11-34); Albumin 1.8 g/dL (3.1-4.5); Alkaline Phosphatase 243 U/L (40-110); Anion Gap 18 mmol/L (10-20); BUN (Urea Nitrogen) 40 mg/dL (8.9-20.6); Bilirubin, Total 0.8 mg/dL (0.3-1.2); CK (CPK) 20 U/L (30-200); Calc. Creatinine Clearance 0 mL/min (70-130); Calcium 9.0 mg/dL (7.8-10.44); Carbon Dioxide 22 mmol/L (22-29); Chloride 88 mmol/L (98-107); Globulin 4.8 g/dL (2.4-3.5); Glucose 516 mg/dL (70-105); Lipase 56 U/L (8-78); Magnesium 1.6 mg/dL (1.6-2.6); Potassium 4.4 mmol/L (3.5-5.1); Sodium 124 mmol/L (136-145)
[2025-01-08 05:58] LABS: Free T4 (Free Thyroxine) 1.01 ng/dL (0.70-1.48); Thyroid Stimulating Hormone 1.1179 uIU/mL (0.35-4.94)
[2025-01-08 06:11] LABS: Actual Bicarbonate (HCO3v) 25.6 mEq/L (22-28); Base Excess -0.3 mEq/L (-2.0 to +3.0); Calcium, Ionized (venous) 1.07 mmol/L (1.16-1.32); Chloride (VBG) 92 mmol/L (98-106); Hematocrit-VBG 31 % (42.0-52.0); Hemoglobin (Hb) 10.5 g/dL (13.1-17.2); Potassium (VBG) 4.51 mmol/L (3.70-5.30); Sodium 124 mmol/L (133-146)
[2025-01-08] MEDS ORDERED: Vancomycin 1 GM/200 ML (FROZEN) BAG ONE (06:15)
[2025-01-08 06:20] LABS: Hematocrit 31.0 % (42.0-52.0); Hemoglobin 10.3 g/dL (14.0-18.0); Mean Corpuscular Hemoglobin 27.8 pg (27.0-31.0); Mean Corpuscular Volume 83.8 fL (78.0-98.0); Platelet Count 357 10x3/uL (130-400); Red Blood Cell (RBC) Count 3.70 mill/uL (4.70-6.10); White Blood Cell (WBC) Count 26.28 10x3/uL (4.8-10.8)
[2025-01-08 06:25] LABS: Osmolality, Serum 298 mOsm/kg (275-295)
[2025-01-08 08:02] LABS: Macrocytosis SLIGHT = 6-15 cells HPF (0-5); Platelet Adequacy Comment Platelets Normal; Polychromasia SLIGHT = 2-3 cells HPF (0-2); Smudge Cells 4.0 %; Toxic Granulation SLIGHT
[2025-01-08] MEDS ORDERED: Glucagon 1 MG/ML KIT IM PRN (08:40)
[2025-01-08] MEDS ORDERED: Dextrose 50% Abboject 50 ML SYRINGE SLOW IVP PRN (08:40)
[2025-01-08] MEDS ORDERED: Enoxaparin 40 MG (0.4 mL) SYRINGE SC SCH (09:00)
[2025-01-08] MEDS ORDERED: Insulin Glargine 30 UNITS/0.3 ML VIAL ONE (09:51)
[2025-01-08] MEDS: Insulin Glargine 30 UNITS/0.3 ML VIAL SC SCH (09:56)
[2025-01-08] MEDS ORDERED: Electrolyte Replacement Protocol 1 EACH FS SCH (14:15)
[2025-01-08] MEDS ORDERED: Iopamidol-370 76% 500 ML MDV (1 ML CHARGE) ONE ×2 (15:43→15:44)
[2025-01-08] MEDS ORDERED: PROPOFOL 20 ML ONE (16:10)
[2025-01-08] MEDS ORDERED: Lidocaine 1% PF 5 ML VIAL ONE (16:11)
[2025-01-08] MEDS ORDERED: PHENYLEPHRINE-NS 100 MCG/ML 10 ML SYRINGE ONE (16:50)
[2025-01-08] MEDS: Vancomycin 1 GM in Premix 1 BAG IVPB SCH (21:44)
[2025-01-09] MEDS: Acetaminophen 325 MG TAB PO PRN (00:01)
[2025-01-09 05:02] LABS: Hematocrit 28.7 % (42.0-52.0); Hemoglobin 9.3 g/dL (14.0-18.0); Mean Corpuscular Hemoglobin 27.8 pg (27.0-31.0); Mean Corpuscular Volume 85.7 fL (78.0-98.0); Platelet Count 383 10x3/uL (130-400); Red Blood Cell (RBC) Count 3.35 mill/uL (4.70-6.10); White Blood Cell (WBC) Count 27.99 10x3/uL (4.8-10.8)
[2025-01-09 05:11] LABS: Vancomycin, Random 22.4 ug/mL (See Comment)
[2025-01-09 05:15] LABS: ALT (SGPT) 9 U/L (Less than 45); AST (SGOT) 14 U/L (11-34); Albumin 1.5 g/dL (3.1-4.5); Alkaline Phosphatase 177 U/L (40-110); Anion Gap 14 mmol/L (10-20); BUN (Urea Nitrogen) 38 mg/dL (8.9-20.6); Bilirubin, Total 0.9 mg/dL (0.3-1.2); Calc. Creatinine Clearance 36 mL/min (70-130); Calcium 8.6 mg/dL (7.8-10.44); Carbon Dioxide 22 mmol/L (22-29); Chloride 98 mmol/L (98-107); Globulin 4.4 g/dL (2.4-3.5); Glucose 198 mg/dL (70-105); Potassium 4.4 mmol/L (3.5-5.1); Sodium 130 mmol/L (136-145)
[2025-01-09 05:33] LABS: Burr Cells SLIGHT = 2-5 cells HPF (0-1); Platelet Adequacy Comment Platelets Normal; Polychromasia SLIGHT = 2-3 cells HPF (0-2); Smudge Cells 1.0 %; Target Cells SLIGHT = 2-5 cells HPF (0-1)
[2025-01-09] MEDS: Enoxaparin 40 MG (0.4 mL) SYRINGE SC SCH (08:07)
[2025-01-09] MEDS: Folic Acid 1 MG TAB PO SCH (08:07)
[2025-01-09] MEDS: Carvedilol 6.25 MG TAB PO SCH (08:07)
[2025-01-09] MEDS: Multivit, Therapeutic 1 TAB PO SCH (08:07)
[2025-01-09] MEDS: Insulin Glargine 30 UNITS/0.3 ML VIAL SC SCH (08:17)
[2025-01-09] MEDS: Vancomycin HCl 750 MG in Sodium Chloride 0.9% 250 ML 250 ML IVPB SCH (17:46)
[2025-01-09] MEDS: HYDROcodone/Acetaminophen 5/325 mg Tablet PO SCH (20:55)
[2025-01-10 05:07] LABS: Hematocrit 25.9 % (42.0-52.0); Hemoglobin 8.4 g/dL (14.0-18.0); Mean Corpuscular Hemoglobin 28.0 pg (27.0-31.0); Mean Corpuscular Volume 86.3 fL (78.0-98.0); Platelet Count 395 10x3/uL (130-400); Red Blood Cell (RBC) Count 3.00 mill/uL (4.70-6.10); White Blood Cell (WBC) Count 31.31 10x3/uL (4.8-10.8)
[2025-01-10 05:40] LABS: Anisocytosis SLIGHT = 6-15 cells HPF (0-5); Platelet Adequacy Comment Platelets Normal; Polychromasia SLIGHT = 2-3 cells HPF (0-2); Smudge Cells 1.0 %
[2025-01-10 05:46] LABS: ALT (SGPT) 8 U/L (Less than 45); AST (SGOT) 14 U/L (11-34); Albumin 1.4 g/dL (3.1-4.5); Alkaline Phosphatase 194 U/L (40-110); Anion Gap 14 mmol/L (10-20); BUN (Urea Nitrogen) 50 mg/dL (8.9-20.6); Bilirubin, Total 0.6 mg/dL (0.3-1.2); Calc. Creatinine Clearance 21 mL/min (70-130); Calcium 8.2 mg/dL (7.8-10.44); Carbon Dioxide 21 mmol/L (22-29); Chloride 97 mmol/L (98-107); Globulin 4.3 g/dL (2.4-3.5); Glucose 235 mg/dL (70-105); Potassium 4.3 mmol/L (3.5-5.1); Sodium 128 mmol/L (136-145)
[2025-01-10] MEDS: Enoxaparin 30 MG (0.3 mL) SYRINGE SC SCH (08:40)
[2025-01-10] MEDS: Insulin Glargine 30 UNITS/0.3 ML VIAL SC SCH (08:42)
[2025-01-10] MEDS: HYDROcodone/Acetaminophen 5/325 mg Tablet PO SCH (09:39)
[2025-01-10 09:59] LABS: Sodium, Urine Less than 20 mmol/L (Not Available)
[2025-01-10] MEDS: Albumin 25% 25 GM (100 mL) BOT IVPB SCH (13:17)
[2025-01-11 00:09] LABS: Bacteria/HPF None Seen HPF (None Seen); Glucose, Urine (Dipstick) Normal (Negative); Leukocyte 250 Leu/uL (Negative); Protein, Urine (Dipstick) 50 mg/dL (Neg-Trace); Specific Gravity, Urine 1.016 (1.002-1.036)
[2025-01-11] MEDS: HYDROcodone/Acetaminophen 5/325 mg Tablet PO SCH ×2 (01:48→09:48)
[2025-01-11 04:44] LABS: Vancomycin, Random 25.6 ug/mL (See Comment)
[2025-01-11 04:50] LABS: Hematocrit 22.9 % (42.0-52.0); Hemoglobin 7.5 g/dL (14.0-18.0); Mean Corpuscular Hemoglobin 28.2 pg (27.0-31.0); Mean Corpuscular Volume 86.1 fL (78.0-98.0); Platelet Count 350 10x3/uL (130-400); Red Blood Cell (RBC) Count 2.66 mill/uL (4.70-6.10); White Blood Cell (WBC) Count 24.76 10x3/uL (4.8-10.8)
[2025-01-11 04:51] LABS: ALT (SGPT) 8 U/L (Less than 45); AST (SGOT) 25 U/L (11-34); Albumin 2.0 g/dL (3.1-4.5); Alkaline Phosphatase 232 U/L (40-110); Anion Gap 15 mmol/L (10-20); BUN (Urea Nitrogen) 57 mg/dL (8.9-20.6); Bilirubin, Total 0.5 mg/dL (0.3-1.2); Calc. Creatinine Clearance 22 mL/min (70-130); Calcium 8.4 mg/dL (7.8-10.44); Carbon Dioxide 20 mmol/L (22-29); Chloride 101 mmol/L (98-107); Globulin 3.9 g/dL (2.4-3.5); Glucose 84 mg/dL (70-105); Potassium 4.1 mmol/L (3.5-5.1); Sodium 132 mmol/L (136-145)
[2025-01-11 05:52] LABS: Platelet Adequacy Comment Platelets Normal; RBC Morphology Within Normal Limits
[2025-01-11] MEDS: Gabapentin 300 MG CAP PO SCH (09:50)
[2025-01-11] MEDS: Thiamine 100 MG TAB PO SCH (09:50)
[2025-01-11] MEDS ORDERED: Vancomycin Dose by Levels Sliding Scale (Wt 71-99) FS SCH (11:00)
[2025-01-11] MEDS: Albumin 25% 25 GM (100 mL) BOT IVPB SCH (12:05)
[2025-01-12 06:53] LABS: #Basophils 0.05 10x3/uL (0.0-0.2); #Eosinophils 0.20 10x3/uL (0.0-0.7); #Monocytes 1.06 10x3/uL (0.11-0.59); #Neutrophils 18.87 10x3/uL (1.40-6.50); %Basophils 0.2 % (0.0-1.0); %Eosinophils 0.9 % (0.0-10.0); %Lymphocytes 4.0 % (21.0-51.0); %Monocytes 4.9 % (0.0-10.0); %Neutrophils 87.7 % (42.0-75.0); Hematocrit 23.7 % (42.0-52.0); Hemoglobin 7.6 g/dL (14.0-18.0); Mean Corpuscular Hemoglobin 27.8 pg (27.0-31.0); Mean Corpuscular Volume 86.8 fL (78.0-98.0); Platelet Count 371 10x3/uL (130-400); Red Blood Cell (RBC) Count 2.73 mill/uL (4.70-6.10); White Blood Cell (WBC) Count 21.54 10x3/uL (4.8-10.8)
[2025-01-12 07:18] LABS: Vancomycin, Trough 15.6 ug/mL
[2025-01-12 07:22] LABS: ALT (SGPT) 14 U/L (Less than 45); AST (SGOT) 28 U/L (11-34); Albumin 3.1 g/dL (3.1-4.5); Alkaline Phosphatase 329 U/L (40-110); Anion Gap 16 mmol/L (10-20); BUN (Urea Nitrogen) 54 mg/dL (8.9-20.6); Bilirubin, Total 0.6 mg/dL (0.3-1.2); Calc. Creatinine Clearance 28 mL/min (70-130); Calcium 9.2 mg/dL (7.8-10.44); Carbon Dioxide 19 mmol/L (22-29); Chloride 105 mmol/L (98-107); Globulin 3.7 g/dL (2.4-3.5); Glucose 174 mg/dL (70-105); Potassium 4.1 mmol/L (3.5-5.1); Sodium 136 mmol/L (136-145)
[2025-01-12 10:06] LABS: ALT (SGPT) 11 U/L (Less than 45); AST (SGOT) 25 U/L (11-34); Albumin 2.7 g/dL (3.1-4.5); Alkaline Phosphatase 304 U/L (40-110); Anion Gap 16 mmol/L (10-20); BUN (Urea Nitrogen) 53 mg/dL (8.9-20.6); Bilirubin, Total 0.5 mg/dL (0.3-1.2); Calc. Creatinine Clearance 29 mL/min (70-130); Calcium 9.0 mg/dL (7.8-10.44); Carbon Dioxide 20 mmol/L (22-29); Chloride 105 mmol/L (98-107); Globulin 3.5 g/dL (2.4-3.5); Glucose 168 mg/dL (70-105); Potassium 4.0 mmol/L (3.5-5.1); Sodium 137 mmol/L (136-145)
[2025-01-12] MEDS: Insulin Glargine 30 UNITS/0.3 ML VIAL SC SCH (10:14)
[2025-01-12] MEDS: HYDROcodone/Acetaminophen 5/325 mg Tablet PO PRN (10:17)
[2025-01-12] MEDS: Carvedilol 6.25 MG TAB PO SCH (17:36)
[2025-01-13 04:46] LABS: #Basophils 0.04 10x3/uL (0.0-0.2); #Eosinophils 0.15 10x3/uL (0.0-0.7); #Monocytes 1.28 10x3/uL (0.11-0.59); #Neutrophils 16.54 10x3/uL (1.40-6.50); %Basophils 0.2 % (0.0-1.0); %Eosinophils 0.8 % (0.0-10.0); %Lymphocytes 6.1 % (21.0-51.0); %Monocytes 6.5 % (0.0-10.0); %Neutrophils 83.7 % (42.0-75.0); Hematocrit 23.6 % (42.0-52.0); Hemoglobin 7.6 g/dL (14.0-18.0); Mean Corpuscular Hemoglobin 27.7 pg (27.0-31.0); Mean Corpuscular Volume 86.1 fL (78.0-98.0); Platelet Count 392 10x3/uL (130-400); Red Blood Cell (RBC) Count 2.74 mill/uL (4.70-6.10); White Blood Cell (WBC) Count 19.75 10x3/uL (4.8-10.8)
[2025-01-13 05:59] LABS: Albumin 2.4 g/dL (3.1-4.5); Alkaline Phosphatase 395 U/L (40-110); BUN (Urea Nitrogen) 46 mg/dL (8.9-20.6); Bilirubin, Total 0.5 mg/dL (0.3-1.2); Calc. Creatinine Clearance 33 mL/min (70-130); Calcium 8.9 mg/dL (7.8-10.44); Carbon Dioxide 21 mmol/L (22-29); Globulin 3.8 g/dL (2.4-3.5); Glucose 95 mg/dL (70-105); Iron 13 ug/dL (65-175); Iron Binding Capacity, Total 104 mcg/dL (261-462)
[2025-01-13 06:24] LABS: Anion Gap 15 mmol/L (10-20); Chloride 108 mmol/L (98-107); Potassium 4.1 mmol/L (3.5-5.1); Sodium 140 mmol/L (136-145)
[2025-01-13 06:26] LABS: ALT (SGPT) 18 U/L (Less than 45); AST (SGOT) 36 U/L (11-34)
[2025-01-13] MEDS: Ferrous Sulfate 325 MG TAB PO SCH (09:57)
[2025-01-13 10:44] LABS: Vancomycin, Trough 13.3 ug/mL
[2025-01-13] MEDS: Albumin 25% 25 GM (100 mL) BOT IVPB SCH (12:33)
[2025-01-13] MEDS: Vancomycin HCl 750 MG in Sodium Chloride 0.9% 250 ML 250 ML IVPB SCH (12:33)
[2025-01-13] MEDS: Acetaminophen 500 MG TAB PO PRN (16:09)
[2025-01-14 05:07] LABS: #Basophils 0.04 10x3/uL (0.0-0.2); #Eosinophils 0.14 10x3/uL (0.0-0.7); #Monocytes 1.41 10x3/uL (0.11-0.59); #Neutrophils 13.54 10x3/uL (1.40-6.50); %Basophils 0.2 % (0.0-1.0); %Eosinophils 0.8 % (0.0-10.0); %Lymphocytes 7.0 % (21.0-51.0); %Monocytes 8.4 % (0.0-10.0); %Neutrophils 80.8 % (42.0-75.0); Hematocrit 21.4 % (42.0-52.0); Hemoglobin 6.7 g/dL (14.0-18.0); Mean Corpuscular Hemoglobin 27.7 pg (27.0-31.0); Mean Corpuscular Volume 88.4 fL (78.0-98.0); Platelet Count 364 10x3/uL (130-400); Red Blood Cell (RBC) Count 2.42 mill/uL (4.70-6.10); White Blood Cell (WBC) Count 16.77 10x3/uL (4.8-10.8)
[2025-01-14 05:24] LABS: ALT (SGPT) 23 U/L (Less than 45); AST (SGOT) 31 U/L (11-34); Albumin 2.6 g/dL (3.1-4.5); Alkaline Phosphatase 388 U/L (40-110); Anion Gap 16 mmol/L (10-20); BUN (Urea Nitrogen) 43 mg/dL (8.9-20.6); Bilirubin, Total 0.5 mg/dL (0.3-1.2); Calc. Creatinine Clearance 41 mL/min (70-130); Calcium 8.0 mg/dL (7.8-10.44); Carbon Dioxide 20 mmol/L (22-29); Chloride 106 mmol/L (98-107); Globulin 3.0 g/dL (2.4-3.5); Glucose 301 mg/dL (70-105); Potassium 4.4 mmol/L (3.5-5.1); Sodium 138 mmol/L (136-145)
[2025-01-14] MEDS ORDERED: Heparin 5,000 UNITS/ML VIAL ONE (09:11)
[2025-01-14] MEDS ORDERED: fentaNYL PF 100 MCG/2 ML SYRINGE ONE (09:36)
[2025-01-14] MEDS ORDERED: PROPOFOL 20 ML ONE (09:36)
[2025-01-14] MEDS ORDERED: Ondansetron PF 4 MG/2 ML Vial ONE (10:03)
[2025-01-14 12:56] LABS: Vancomycin, Trough 12.2 ug/mL
[2025-01-14] MEDS: Vancomycin HCl 750 MG in Sodium Chloride 0.9% 250 ML 250 ML IVPB SCH (13:58)
[2025-01-14 22:42] LABS: Hematocrit 23.3 % (42.0-52.0); Hemoglobin 7.4 g/dL (14.0-18.0)
[2025-01-14] MEDS: Albumin 25% 25 GM (100 mL) BOT IVPB SCH (23:40)
[2025-01-15 05:48] LABS: #Basophils 0.04 10x3/uL (0.0-0.2); #Eosinophils 0.21 10x3/uL (0.0-0.7); #Monocytes 1.21 10x3/uL (0.11-0.59); #Neutrophils 10.78 10x3/uL (1.40-6.50); %Basophils 0.3 % (0.0-1.0); %Eosinophils 1.5 % (0.0-10.0); %Lymphocytes 8.7 % (21.0-51.0); %Monocytes 8.7 % (0.0-10.0); %Neutrophils 77.8 % (42.0-75.0); Hematocrit 24.1 % (42.0-52.0); Hemoglobin 7.8 g/dL (14.0-18.0); Mean Corpuscular Hemoglobin 28.4 pg (27.0-31.0); Mean Corpuscular Volume 87.6 fL (78.0-98.0); Platelet Count 350 10x3/uL (130-400); Red Blood Cell (RBC) Count 2.75 mill/uL (4.70-6.10); White Blood Cell (WBC) Count 13.86 10x3/uL (4.8-10.8)
[2025-01-15 06:02] LABS: CRP, High Sensitivity at Bryan 15.99 mg/dL (< or = 0.5)
[2025-01-15 06:03] LABS: ALT (SGPT) 36 U/L (Less than 45); AST (SGOT) 45 U/L (11-34); Albumin 2.9 g/dL (3.1-4.5); Alkaline Phosphatase 440 U/L (40-110); Anion Gap 15 mmol/L (10-20); BUN (Urea Nitrogen) 41 mg/dL (8.9-20.6); Bilirubin, Total 0.9 mg/dL (0.3-1.2); Calc. Creatinine Clearance 44 mL/min (70-130); Calcium 8.5 mg/dL (7.8-10.44); Carbon Dioxide 23 mmol/L (22-29); Chloride 108 mmol/L (98-107); Globulin 3.3 g/dL (2.4-3.5); Glucose 203 mg/dL (70-105); Potassium 5.0 mmol/L (3.5-5.1); Sodium 141 mmol/L (136-145)
[2025-01-15] MEDS: Enoxaparin 40 MG (0.4 mL) SYRINGE SC SCH (08:41)
[2025-01-15] MEDS: EPOETIN ALFA-EPBX (ESRD) 10,000 UNITS/ML VIAL SC SCH (11:15)
[2025-01-15 11:27] LABS: Vancomycin, Trough 11.5 ug/mL
[2025-01-15] MEDS: Vancomycin 1 GM Premix Bag IVPB SCH (13:48)
[2025-01-16 05:14] LABS: #Basophils 0.05 10x3/uL (0.0-0.2); #Eosinophils 0.16 10x3/uL (0.0-0.7); #Monocytes 1.09 10x3/uL (0.11-0.59); #Neutrophils 12.12 10x3/uL (1.40-6.50); %Basophils 0.3 % (0.0-1.0); %Eosinophils 1.1 % (0.0-10.0); %Lymphocytes 8.1 % (21.0-51.0); %Monocytes 7.2 % (0.0-10.0); %Neutrophils 80.2 % (42.0-75.0); Hematocrit 25.1 % (42.0-52.0); Hemoglobin 7.9 g/dL (14.0-18.0); Mean Corpuscular Hemoglobin 27.7 pg (27.0-31.0); Mean Corpuscular Volume 88.1 fL (78.0-98.0); Platelet Count 372 10x3/uL (130-400); Red Blood Cell (RBC) Count 2.85 mill/uL (4.70-6.10); White Blood Cell (WBC) Count 15.11 10x3/uL (4.8-10.8)
[2025-01-16 05:33] LABS: ALT (SGPT) 36 U/L (Less than 45); AST (SGOT) 45 U/L (11-34); Albumin 3.1 g/dL (3.1-4.5); Alkaline Phosphatase 466 U/L (40-110); Anion Gap 14 mmol/L (10-20); BUN (Urea Nitrogen) 43 mg/dL (8.9-20.6); Bilirubin, Total 0.5 mg/dL (0.3-1.2); Calc. Creatinine Clearance 49 mL/min (70-130); Calcium 8.7 mg/dL (7.8-10.44); Carbon Dioxide 21 mmol/L (22-29); Chloride 106 mmol/L (98-107); Globulin 3.4 g/dL (2.4-3.5); Glucose 351 mg/dL (70-105); Potassium 4.5 mmol/L (3.5-5.1); Sodium 136 mmol/L (136-145)
[2025-01-16 05:38] LABS: Vancomycin, Random 15.5 ug/mL (See Comment)
[2025-01-16] MEDS ORDERED: Lidocaine 1% w/Epinephrine 1:100K 20 ML VIAL ONE (09:19)
[2025-01-16] MEDS ORDERED: Sodium Bicarbonate 2.5 MEQ/5 ML SDV ONE (09:20)
[2025-01-16] MEDS: Carvedilol 6.25 MG TAB PO SCH ×2 (09:24→17:51)
[2025-01-16] MEDS: Insulin Glargine 30 UNITS/0.3 ML VIAL SC SCH ×2 (09:35→21:02)
[2025-01-17 04:21] LABS: #Basophils 0.04 10x3/uL (0.0-0.2); #Eosinophils 0.16 10x3/uL (0.0-0.7); #Monocytes 1.25 10x3/uL (0.11-0.59); #Neutrophils 11.65 10x3/uL (1.40-6.50); %Basophils 0.3 % (0.0-1.0); %Eosinophils 1.1 % (0.0-10.0); %Lymphocytes 8.1 % (21.0-51.0); %Monocytes 8.4 % (0.0-10.0); %Neutrophils 78.3 % (42.0-75.0); Hematocrit 23.3 % (42.0-52.0); Hemoglobin 7.3 g/dL (14.0-18.0); Mean Corpuscular Hemoglobin 28.2 pg (27.0-31.0); Mean Corpuscular Volume 90.0 fL (78.0-98.0); Platelet Count 375 10x3/uL (130-400); Red Blood Cell (RBC) Count 2.59 mill/uL (4.70-6.10); White Blood Cell (WBC) Count 14.87 10x3/uL (4.8-10.8)
[2025-01-17 08:41] LABS: ALT (SGPT) 51 U/L (Less than 45); AST (SGOT) 48 U/L (11-34); Albumin 2.8 g/dL (3.1-4.5); Alkaline Phosphatase 438 U/L (40-110); Anion Gap 17 mmol/L (10-20); BUN (Urea Nitrogen) 40 mg/dL (8.9-20.6); Bilirubin, Total 0.5 mg/dL (0.3-1.2); Calc. Creatinine Clearance 60 mL/min (70-130); Calcium 8.6 mg/dL (7.8-10.44); Carbon Dioxide 20 mmol/L (22-29); Chloride 109 mmol/L (98-107); Globulin 3.2 g/dL (2.4-3.5); Glucose 96 mg/dL (70-105); Potassium 4.4 mmol/L (3.5-5.1); Sodium 142 mmol/L (136-145)
[2025-01-17 11:31] VITALS: BMI 30.1
[2025-01-17] MEDS: Albumin 25% 25 GM (100 mL) BOT IVPB SCH (12:41)
[2025-01-17] MEDS: Vancomycin HCl 1.25 GM in Sodium Chloride 0.9% 250 ML 250 ML IVPB SCH (15:41)
[2025-01-18 04:29] LABS: #Basophils 0.04 10x3/uL (0.0-0.2); #Eosinophils 0.13 10x3/uL (0.0-0.7); #Monocytes 0.92 10x3/uL (0.11-0.59); #Neutrophils 12.69 10x3/uL (1.40-6.50); %Basophils 0.3 % (0.0-1.0); %Eosinophils 0.9 % (0.0-10.0); %Lymphocytes 7.4 % (21.0-51.0); %Monocytes 6.0 % (0.0-10.0); %Neutrophils 83.4 % (42.0-75.0); Hematocrit 25.1 % (42.0-52.0); Hemoglobin 7.7 g/dL (14.0-18.0); Mean Corpuscular Hemoglobin 27.8 pg (27.0-31.0); Mean Corpuscular Volume 90.6 fL (78.0-98.0); Platelet Count 383 10x3/uL (130-400); Red Blood Cell (RBC) Count 2.77 mill/uL (4.70-6.10); White Blood Cell (WBC) Count 15.21 10x3/uL (4.8-10.8)
[2025-01-18 05:01] LABS: Vancomycin, Random 21.3 ug/mL (See Comment)
[2025-01-18 05:10] LABS: ALT (SGPT) 50 U/L (Less than 45); AST (SGOT) 43 U/L (11-34); Albumin 2.9 g/dL (3.1-4.5); Alkaline Phosphatase 374 U/L (40-110); Anion Gap 11 mmol/L (10-20); BUN (Urea Nitrogen) 40 mg/dL (8.9-20.6); Bilirubin, Total 0.4 mg/dL (0.3-1.2); Calc. Creatinine Clearance 66 mL/min (70-130); Calcium 8.2 mg/dL (7.8-10.44); Carbon Dioxide 21 mmol/L (22-29); Chloride 113 mmol/L (98-107); Globulin 2.8 g/dL (2.4-3.5); Glucose 189 mg/dL (70-105); Potassium 4.5 mmol/L (3.5-5.1); Sodium 140 mmol/L (136-145)
[2025-01-18] MEDS: Albumin 25% 25 GM (100 mL) BOT IVPB SCH (05:10)
[2025-01-18] MEDS: Insulin Glargine 30 UNITS/0.3 ML VIAL SC SCH (07:56)
[2025-01-18] MEDS: Mupirocin 1 GM TUBE TP SCH (08:06)
[2025-01-19 05:45] LABS: #Basophils 0.04 10x3/uL (0.0-0.2); #Eosinophils 0.17 10x3/uL (0.0-0.7); #Monocytes 0.66 10x3/uL (0.11-0.59); #Neutrophils 10.42 10x3/uL (1.40-6.50); %Basophils 0.3 % (0.0-1.0); %Eosinophils 1.4 % (0.0-10.0); %Lymphocytes 7.6 % (21.0-51.0); %Monocytes 5.3 % (0.0-10.0); %Neutrophils 83.9 % (42.0-75.0); Hematocrit 25.1 % (42.0-52.0); Hemoglobin 7.8 g/dL (14.0-18.0); Mean Corpuscular Hemoglobin 27.9 pg (27.0-31.0); Mean Corpuscular Volume 89.6 fL (78.0-98.0); Platelet Count 369 10x3/uL (130-400); Red Blood Cell (RBC) Count 2.80 mill/uL (4.70-6.10); White Blood Cell (WBC) Count 12.42 10x3/uL (4.8-10.8)
[2025-01-19 06:07] LABS: ALT (SGPT) 67 U/L (Less than 45); AST (SGOT) 78 U/L (11-34); Albumin 3.2 g/dL (3.1-4.5); Alkaline Phosphatase 381 U/L (40-110); Anion Gap 14 mmol/L (10-20); BUN (Urea Nitrogen) 44 mg/dL (8.9-20.6); Bilirubin, Total 0.4 mg/dL (0.3-1.2); Calc. Creatinine Clearance 60 mL/min (70-130); Calcium 9.0 mg/dL (7.8-10.44); Carbon Dioxide 21 mmol/L (22-29); Chloride 112 mmol/L (98-107); Globulin 3.6 g/dL (2.4-3.5); Glucose 236 mg/dL (70-105); Potassium 4.4 mmol/L (3.5-5.1); Sodium 143 mmol/L (136-145)
[2025-01-19] MEDS: Calcium Carbonate 500 MG ChewTAB PO SCH (09:31)
[2025-01-19] MEDS: Senokot S 8.6-50 MG TAB PO SCH (09:34)
[2025-01-19] MEDS: HYDROcodone/Acetaminophen 5/325 mg Tablet PO PRN (17:41)
[2025-01-20 04:12] LABS: #Basophils 0.05 10x3/uL (0.0-0.2); #Eosinophils 0.16 10x3/uL (0.0-0.7); #Monocytes 0.63 10x3/uL (0.11-0.59); #Neutrophils 8.78 10x3/uL (1.40-6.50); %Basophils 0.5 % (0.0-1.0); %Eosinophils 1.5 % (0.0-10.0); %Lymphocytes 9.2 % (21.0-51.0); %Monocytes 5.9 % (0.0-10.0); %Neutrophils 81.9 % (42.0-75.0); Hematocrit 24.5 % (42.0-52.0); Hemoglobin 7.6 g/dL (14.0-18.0); Mean Corpuscular Hemoglobin 28.1 pg (27.0-31.0); Mean Corpuscular Volume 90.7 fL (78.0-98.0); Platelet Count 352 10x3/uL (130-400); Red Blood Cell (RBC) Count 2.70 mill/uL (4.70-6.10); White Blood Cell (WBC) Count 10.71 10x3/uL (4.8-10.8)
[2025-01-20 04:38] LABS: ALT (SGPT) 83 U/L (Less than 45); AST (SGOT) 79 U/L (11-34); Albumin 3.2 g/dL (3.1-4.5); Alkaline Phosphatase 393 U/L (40-110); Anion Gap 14 mmol/L (10-20); BUN (Urea Nitrogen) 43 mg/dL (8.9-20.6); Bilirubin, Total 0.5 mg/dL (0.3-1.2); Calc. Creatinine Clearance 84 mL/min (70-130); Calcium 9.1 mg/dL (7.8-10.44); Carbon Dioxide 20 mmol/L (22-29); Chloride 114 mmol/L (98-107); Globulin 3.8 g/dL (2.4-3.5); Glucose 82 mg/dL (70-105); Potassium 4.3 mmol/L (3.5-5.1); Sodium 144 mmol/L (136-145)
[2025-01-20] MEDS: Pantoprazole 40 MG DR.TAB PO SCH (08:13)
[2025-01-20] MEDS: Furosemide 40 MG (4 mL) VIAL SLOW IVP SCH (11:50)
[2025-01-21 05:00] LABS: #Basophils 0.05 10x3/uL (0.0-0.2); #Eosinophils 0.13 10x3/uL (0.0-0.7); #Monocytes 0.60 10x3/uL (0.11-0.59); #Neutrophils 8.38 10x3/uL (1.40-6.50); %Basophils 0.5 % (0.0-1.0); %Eosinophils 1.3 % (0.0-10.0); %Lymphocytes 9.4 % (21.0-51.0); %Monocytes 5.9 % (0.0-10.0); %Neutrophils 82.3 % (42.0-75.0); Hematocrit 23.3 % (42.0-52.0); Hemoglobin 7.0 g/dL (14.0-18.0); Mean Corpuscular Hemoglobin 27.3 pg (27.0-31.0); Mean Corpuscular Volume 91.0 fL (78.0-98.0); Platelet Count 345 10x3/uL (130-400); Red Blood Cell (RBC) Count 2.56 mill/uL (4.70-6.10); White Blood Cell (WBC) Count 10.18 10x3/uL (4.8-10.8)
[2025-01-21 05:18] LABS: ALT (SGPT) 100 U/L (Less than 45); AST (SGOT) 85 U/L (11-34); Albumin 2.9 g/dL (3.1-4.5); Alkaline Phosphatase 398 U/L (40-110); Anion Gap 14 mmol/L (10-20); BUN (Urea Nitrogen) 42 mg/dL (8.9-20.6); Bilirubin, Total 0.4 mg/dL (0.3-1.2); Calc. Creatinine Clearance 83 mL/min (70-130); Calcium 8.6 mg/dL (7.8-10.44); Carbon Dioxide 21 mmol/L (22-29); Chloride 113 mmol/L (98-107); Globulin 3.5 g/dL (2.4-3.5); Glucose 105 mg/dL (70-105); Potassium 4.1 mmol/L (3.5-5.1); Sodium 144 mmol/L (136-145)
[2025-01-21 05:19] LABS: Vancomycin, Random 20.4 ug/mL (See Comment)
[2025-01-22 05:46] VITALS: BMI 34.8
[2025-01-22 06:00] LABS: #Basophils 0.05 10x3/uL (0.0-0.2); #Eosinophils 0.11 10x3/uL (0.0-0.7); #Monocytes 0.57 10x3/uL (0.11-0.59); #Neutrophils 8.23 10x3/uL (1.40-6.50); %Basophils 0.5 % (0.0-1.0); %Eosinophils 1.1 % (0.0-10.0); %Lymphocytes 8.6 % (21.0-51.0); %Monocytes 5.8 % (0.0-10.0); %Neutrophils 83.3 % (42.0-75.0); Hematocrit 22.5 % (42.0-52.0); Hemoglobin 6.8 g/dL (14.0-18.0); Mean Corpuscular Hemoglobin 27.6 pg (27.0-31.0); Mean Corpuscular Volume 91.5 fL (78.0-98.0); Platelet Count 350 10x3/uL (130-400); Red Blood Cell (RBC) Count 2.46 mill/uL (4.70-6.10); White Blood Cell (WBC) Count 9.88 10x3/uL (4.8-10.8)
[2025-01-22 06:34] LABS: ALT (SGPT) 79 U/L (Less than 45); AST (SGOT) 53 U/L (11-34); Albumin 2.9 g/dL (3.1-4.5); Alkaline Phosphatase 345 U/L (40-110); Anion Gap 13 mmol/L (10-20); BUN (Urea Nitrogen) 48 mg/dL (8.9-20.6); Bilirubin, Total 0.5 mg/dL (0.3-1.2); Calc. Creatinine Clearance 85 mL/min (70-130); Calcium 8.9 mg/dL (7.8-10.44); Carbon Dioxide 23 mmol/L (22-29); Chloride 112 mmol/L (98-107); Globulin 3.7 g/dL (2.4-3.5); Glucose 95 mg/dL (70-105); Potassium 4.0 mmol/L (3.5-5.1); Sodium 144 mmol/L (136-145)
[2025-01-22] MEDS ORDERED: fentaNYL PF 100 MCG/2 ML SYRINGE ONE (09:34)
[2025-01-22] MEDS ORDERED: PROPOFOL 20 ML ONE (09:34)
[2025-01-22] MEDS ORDERED: SUGAMMADEX SODIUM 200 MG/2 ML VIAL ONE (09:34)
[2025-01-22] MEDS ORDERED: Lidocaine 2% PF 100 mg/5 ml Syringe ONE (09:35)
[2025-01-22] MEDS ORDERED: PHENYLEPHRINE-NS 100 MCG/ML 10 ML SYRINGE ONE (09:35)
[2025-01-22] MEDS ORDERED: Rocuronium Bromide 10 MG/ML (10ML VIAL) ONE (09:35)
[2025-01-22] MEDS ORDERED: Ondansetron PF 4 MG/2 ML Vial ONE (09:35)
[2025-01-22] MEDS: Furosemide 40 MG (4 mL) VIAL SLOW IVP SCH (17:22)
[2025-01-23 00:03] LABS: Hematocrit 24.1 % (42.0-52.0); Hemoglobin 7.5 g/dL (14.0-18.0)
[2025-01-23] MEDS: HYDROcodone/Acetaminophen 5/325 mg Tablet PO PRN (02:01)
[2025-01-23 06:13] LABS: #Basophils 0.05 10x3/uL (0.0-0.2); #Eosinophils 0.13 10x3/uL (0.0-0.7); #Monocytes 0.60 10x3/uL (0.11-0.59); #Neutrophils 7.55 10x3/uL (1.40-6.50); %Basophils 0.5 % (0.0-1.0); %Eosinophils 1.4 % (0.0-10.0); %Lymphocytes 9.2 % (21.0-51.0); %Monocytes 6.5 % (0.0-10.0); %Neutrophils 82.0 % (42.0-75.0); Hematocrit 24.7 % (42.0-52.0); Hemoglobin 7.6 g/dL (14.0-18.0); Mean Corpuscular Hemoglobin 27.6 pg (27.0-31.0); Mean Corpuscular Volume 89.8 fL (78.0-98.0); Platelet Count 345 10x3/uL (130-400); Red Blood Cell (RBC) Count 2.75 mill/uL (4.70-6.10); White Blood Cell (WBC) Count 9.22 10x3/uL (4.8-10.8)
[2025-01-23 06:26] LABS: ALT (SGPT) 74 U/L (Less than 45); AST (SGOT) 54 U/L (11-34); Albumin 2.9 g/dL (3.1-4.5); Alkaline Phosphatase 330 U/L (40-110); Anion Gap 12 mmol/L (10-20); BUN (Urea Nitrogen) 47 mg/dL (8.9-20.6); Bilirubin, Total 0.5 mg/dL (0.3-1.2); Calc. Creatinine Clearance 74 mL/min (70-130); Calcium 8.8 mg/dL (7.8-10.44); Carbon Dioxide 25 mmol/L (22-29); Chloride 109 mmol/L (98-107); Globulin 3.7 g/dL (2.4-3.5); Glucose 113 mg/dL (70-105); Potassium 4.1 mmol/L (3.5-5.1); Sodium 142 mmol/L (136-145)
[2025-01-23] MEDS ORDERED: Ondansetron PF 4 MG/2 ML Vial ONE (09:33)
[2025-01-23] MEDS ORDERED: fentaNYL PF 100 MCG/2 ML SYRINGE ONE (09:33)
[2025-01-23] MEDS ORDERED: Rocuronium Bromide 10 MG/ML (10ML VIAL) ONE (09:35)
[2025-01-24 04:58] LABS: #Basophils 0.03 10x3/uL (0.0-0.2); #Eosinophils Less than 0.03 10x3/uL (0.0-0.7); #Monocytes 0.60 10x3/uL (0.11-0.59); #Neutrophils 10.33 10x3/uL (1.40-6.50); %Basophils 0.3 % (0.0-1.0); %Eosinophils 0.0 % (0.0-10.0); %Lymphocytes 4.8 % (21.0-51.0); %Monocytes 5.2 % (0.0-10.0); %Neutrophils 89.4 % (42.0-75.0); Hematocrit 26.7 % (42.0-52.0); Hemoglobin 8.7 g/dL (14.0-18.0); Mean Corpuscular Hemoglobin 28.4 pg (27.0-31.0); Mean Corpuscular Volume 87.3 fL (78.0-98.0); Platelet Count 372 10x3/uL (130-400); Red Blood Cell (RBC) Count 3.06 mill/uL (4.70-6.10); White Blood Cell (WBC) Count 11.56 10x3/uL (4.8-10.8)
[2025-01-24 05:22] LABS: ALT (SGPT) 78 U/L (Less than 45); AST (SGOT) 58 U/L (11-34); Albumin 2.7 g/dL (3.1-4.5); Alkaline Phosphatase 336 U/L (40-110); Anion Gap 12 mmol/L (10-20); BUN (Urea Nitrogen) 51 mg/dL (8.9-20.6); Bilirubin, Total 0.5 mg/dL (0.3-1.2); Calc. Creatinine Clearance 75 mL/min (70-130); Calcium 8.5 mg/dL (7.8-10.44); Carbon Dioxide 24 mmol/L (22-29); Chloride 106 mmol/L (98-107); Globulin 3.7 g/dL (2.4-3.5); Glucose 235 mg/dL (70-105); Potassium 4.2 mmol/L (3.5-5.1); Sodium 138 mmol/L (136-145)
[2025-01-24] MEDS: Albumin 25% 25 GM (100 mL) BOT IVPB SCH (12:32)
[2025-01-24] MEDS: Furosemide 40 MG (4 mL) VIAL SLOW IVP SCH (15:12)
[2025-01-25 04:57] LABS: #Basophils 0.04 10x3/uL (0.0-0.2); #Eosinophils 0.11 10x3/uL (0.0-0.7); #Monocytes 0.64 10x3/uL (0.11-0.59); #Neutrophils 5.87 10x3/uL (1.40-6.50); %Basophils 0.5 % (0.0-1.0); %Eosinophils 1.4 % (0.0-10.0); %Lymphocytes 13.9 % (21.0-51.0); %Monocytes 8.2 % (0.0-10.0); %Neutrophils 75.7 % (42.0-75.0); Hematocrit 24.3 % (42.0-52.0); Hemoglobin 7.5 g/dL (14.0-18.0); Mean Corpuscular Hemoglobin 27.6 pg (27.0-31.0); Mean Corpuscular Volume 89.3 fL (78.0-98.0); Platelet Count 287 10x3/uL (130-400); Red Blood Cell (RBC) Count 2.72 mill/uL (4.70-6.10); White Blood Cell (WBC) Count 7.76 10x3/uL (4.8-10.8)
[2025-01-25 05:12] LABS: ALT (SGPT) 69 U/L (Less than 45); AST (SGOT) 44 U/L (11-34); Albumin 3.1 g/dL (3.1-4.5); Alkaline Phosphatase 266 U/L (40-110); Anion Gap 13 mmol/L (10-20); BUN (Urea Nitrogen) 47 mg/dL (8.9-20.6); Bilirubin, Total 0.5 mg/dL (0.3-1.2); Calc. Creatinine Clearance 82 mL/min (70-130); Calcium 8.6 mg/dL (7.8-10.44); Carbon Dioxide 25 mmol/L (22-29); Chloride 109 mmol/L (98-107); Globulin 3.1 g/dL (2.4-3.5); Glucose 103 mg/dL (70-105); Potassium 3.9 mmol/L (3.5-5.1); Sodium 143 mmol/L (136-145)
[2025-01-25] MEDS: Albumin 25% 25 GM (100 mL) BOT IVPB SCH (11:56)
[2025-01-26 05:38] LABS: #Basophils 0.04 10x3/uL (0.0-0.2); #Eosinophils 0.15 10x3/uL (0.0-0.7); #Monocytes 0.55 10x3/uL (0.11-0.59); #Neutrophils 5.32 10x3/uL (1.40-6.50); %Basophils 0.6 % (0.0-1.0); %Eosinophils 2.1 % (0.0-10.0); %Lymphocytes 13.0 % (21.0-51.0); %Monocytes 7.9 % (0.0-10.0); %Neutrophils 76.0 % (42.0-75.0); Hematocrit 23.9 % (42.0-52.0); Hemoglobin 7.3 g/dL (14.0-18.0); Mean Corpuscular Hemoglobin 27.4 pg (27.0-31.0); Mean Corpuscular Volume 89.8 fL (78.0-98.0); Platelet Count 284 10x3/uL (130-400); Red Blood Cell (RBC) Count 2.66 mill/uL (4.70-6.10); White Blood Cell (WBC) Count 7.00 10x3/uL (4.8-10.8)
[2025-01-26 05:57] LABS: ALT (SGPT) 148 U/L (Less than 45); AST (SGOT) 140 U/L (11-34); Albumin 3.7 g/dL (3.1-4.5); Alkaline Phosphatase 283 U/L (40-110); Anion Gap 14 mmol/L (10-20); BUN (Urea Nitrogen) 43 mg/dL (8.9-20.6); Bilirubin, Total 1.0 mg/dL (0.3-1.2); Calc. Creatinine Clearance 86 mL/min (70-130); Calcium 9.4 mg/dL (7.8-10.44); Carbon Dioxide 27 mmol/L (22-29); Chloride 109 mmol/L (98-107); Globulin 3.1 g/dL (2.4-3.5); Glucose 69 mg/dL (70-105); Potassium 3.7 mmol/L (3.5-5.1); Sodium 146 mmol/L (136-145)
[2025-01-26] MEDS ORDERED: Furosemide 40 MG (4 mL) VIAL SLOW IVP SCH (09:00)
[2025-01-27 04:47] LABS: #Basophils 0.04 10x3/uL (0.0-0.2); #Eosinophils 0.20 10x3/uL (0.0-0.7); #Monocytes 0.60 10x3/uL (0.11-0.59); #Neutrophils 5.13 10x3/uL (1.40-6.50); %Basophils 0.6 % (0.0-1.0); %Eosinophils 2.9 % (0.0-10.0); %Lymphocytes 12.7 % (21.0-51.0); %Monocytes 8.7 % (0.0-10.0); %Neutrophils 74.8 % (42.0-75.0); Hematocrit 24.2 % (42.0-52.0); Hemoglobin 7.4 g/dL (14.0-18.0); Mean Corpuscular Hemoglobin 27.4 pg (27.0-31.0); Mean Corpuscular Volume 89.6 fL (78.0-98.0); Platelet Count 275 10x3/uL (130-400); Red Blood Cell (RBC) Count 2.70 mill/uL (4.70-6.10); White Blood Cell (WBC) Count 6.86 10x3/uL (4.8-10.8)
[2025-01-27 05:19] LABS: ALT (SGPT) 116 U/L (Less than 45); AST (SGOT) 76 U/L (11-34); Albumin 3.5 g/dL (3.1-4.5); Alkaline Phosphatase 288 U/L (40-110); Anion Gap 12 mmol/L (10-20); BUN (Urea Nitrogen) 44 mg/dL (8.9-20.6); Bilirubin, Total 0.8 mg/dL (0.3-1.2); Calc. Creatinine Clearance 94 mL/min (70-130); Calcium 9.0 mg/dL (7.8-10.44); Carbon Dioxide 27 mmol/L (22-29); Chloride 106 mmol/L (98-107); Globulin 3.1 g/dL (2.4-3.5); Glucose 83 mg/dL (70-105); Potassium 3.9 mmol/L (3.5-5.1); Sodium 141 mmol/L (136-145)
[2025-01-27] MEDS: Furosemide 40 MG TAB PO SCH (07:43)
[2025-01-27 07:54] VITALS: TEMP 97.8
[2025-01-27 16:23] VITALS: BP 159/91
== END 2025-01-27 17:10 | disposition home or self-care (01) | DRG 853 ==
LOC: ERS 04:23 → ERHOLD 07:09 → 2NO 18:30 → T4-B 01-18 18:31
PROVIDERS: ADMIT Student in an Organized Health Care Education/Training Program; ATTEND Student in an Organized Health Care Education/Training Program
PROC: 0Y6R0Z0 Detachment at Right 2nd Toe, Complete, Open Approach (ICD-10-PCS; principal; 2025-01-08)
PROC: B41F1ZZ Fluoroscopy of Right Lower Extremity Arteries using Low Osmolar Contrast (ICD-10-PCS; 2025-01-14)
PROC: 3E033XZ Introduction of Vasopressor into Peripheral Vein, Percutaneous Approach (ICD-10-PCS; 2025-01-14)
PROC: 3E03329 Introduction of Other Anti-infective into Peripheral Vein, Percutaneous Approach (ICD-10-PCS; 2025-01-15)
PROC: 02HV33Z Insertion of Infusion Device into Superior Vena Cava, Percutaneous Approach (ICD-10-PCS; 2025-01-16)
PROC: B5181ZA Fluoroscopy of Superior Vena Cava using Low Osmolar Contrast, Guidance (ICD-10-PCS; 2025-01-16)
PROC: 30233J1 Transfusion of Nonautologous Serum Albumin into Peripheral Vein, Percutaneous Approach (ICD-10-PCS; 2025-01-17)
PROC: 0JBQ0ZZ Excision of Right Foot Subcutaneous Tissue and Fascia, Open Approach (ICD-10-PCS; 2025-01-22)
PROC: 0J9Q0ZZ Drainage of Right Foot Subcutaneous Tissue and Fascia, Open Approach (ICD-10-PCS; 2025-01-22)
PROC: 0Y6H0Z2 Detachment at Right Lower Leg, Mid, Open Approach (ICD-10-PCS; 2025-01-23)
DX: A41.9 Sepsis, unspecified organism (principal); N17.0 Acute kidney failure with tubular necrosis; E87.1 Hypo-osmolality and hyponatremia; N17.9 Acute kidney failure, unspecified; I96 Gangrene, not elsewhere classified; I50.22 Chronic systolic (congestive) heart failure; M86.8X7 Other osteomyelitis, ankle and foot; N39.0 Urinary tract infection, site not specified; I13.0 Hypertensive heart and chronic kidney disease with heart failure and stage 1 through stage 4 chronic kidney disease, or unspecified chronic kidney disease; E78.5 Hyperlipidemia, unspecified; N40.0 Benign prostatic hyperplasia without lower urinary tract symptoms; Z79.899 Other long term (current) drug therapy; E11.40 Type 2 diabetes mellitus with diabetic neuropathy, unspecified; Z98.890 Other specified postprocedural states; E11.65 Type 2 diabetes mellitus with hyperglycemia; E86.1 Hypovolemia; E11.69 Type 2 diabetes mellitus with other specified complication; N18.9 Chronic kidney disease, unspecified; D50.9 Iron deficiency anemia, unspecified; R74.01 Elevation of levels of liver transaminase levels
CPT/HCPCS: 36415; 36416; 36430; 36573; 71045; 71275; 74018; 75635; 76770; 80053; 80202; 81001; 82010; 82550; 82570; 82805; 83036; 83540; 83550; 83605; 83690; 83735; 83880; 83930; 83970; 84100; 84145; 84300; 84439; 84443; 84484; 85025; 86141; 86850; 86900; 86901; 87040; 87070; 87076; 87077; 87186; 87205; 87428; 88305; 88307; 88311; 93005; 96365; 96375; 97139; C1751; C1760; C1769; C1894; J0169; J0665; J0692; J1100; J1642; J1644; J1650; J1815; J1940; J2003; J2185; J2250; J2543; J2704; J3010; J3373; J3411; J7030; J7050; J7120; P9016; P9040; P9047; Q0162; Q5105; Q9967

== ENCOUNTER 2025-03-11 14:08 | Emergency (ER) | payer MEDICAID | END 2025-03-11 16:33 | disposition home or self-care (01) | LOC: ERS 14:08 | DX: S92.512A Displaced fracture of proximal phalanx of left lesser toe(s), initial encounter for closed fracture (principal); S90.415A Abrasion, left lesser toe(s), initial encounter; J32.9 Chronic sinusitis, unspecified; H66.91 Otitis media, unspecified, right ear; I10 Essential (primary) hypertension; E11.9 Type 2 diabetes mellitus without complications; W23.1XXA Caught, crushed, jammed, or pinched between stationary objects, initial encounter | CPT/HCPCS: 99283 ==